=== PATIENT | female | born 1970 | race Caucasian/White ===

== ENCOUNTER 2019-05-19 14:54 | Inpatient (IN) | payer SELFPAY ==
[~2019-05-19] VITALS: Ht 165.1 cm; Wt 86.9 kg
[2019-05-19 15:40] LABS: BILIRUBIN,URINE SMALL (NEG); CLARITY,URINE CLEAR; COLOR,URINE AMBER; NITRITE,URINE NEGATIVE (NEG); PH,URINE 5.5; PROTEIN,URINE NEGATIVE (NEG-TRACE)
[2019-05-19 15:55] LABS: BACTERIA,URINE FEW /HPF (0-FEW); SQUAMOUS EPITHELIAL CELL,UR MOD /LPF; WBC,URINE OCC /HPF (0-4)
[2019-05-19] MEDS ORDERED: ONDANSETRON PF 4 MG/2 ML VIAL. IV ONE (16:00)
[2019-05-19] MEDS ORDERED: IV NORMAL SALINE 1000ML BAG 1,000 ML IV ONE ×2 (16:00→18:45)
[2019-05-19] MEDS ORDERED: fentaNYL PF VIAL 100 MCG/2 ML VIAL IV ONE (16:00)
[2019-05-19 16:23] LABS: BASO % 0 % (0-3); EOS % 0 % (0-3); HEMATOCRIT 40.4 % (36.0-47.0); HEMOGLOBIN 13.7 g/dL (12.0-15.5); LYMPH # 0.6 x10^3/uL (1.0-4.8); LYMPH % 11 % (24-48); MEAN CORPUSCULAR HEMOGLOBIN 27 pg (25-35); MEAN CORPUSCULAR HGB CONC 34 g/dL (31-37); MEAN CORPUSCULAR VOLUME 81 fL (79-100); MONO # 0.3 x10^3/uL (0.0-1.1); MONO % 5 % (0-9); NEUT # 4.9 x10^3/uL (1.8-7.7); NEUT % 83 % (31-73); PLATELET COUNT 139 x10^3/uL (140-400); RED BLOOD COUNT 5.01 x10^6/uL (3.50-5.40); RED CELL DISTRIBUTION WIDTH 16.1 % (11.5-14.5); WHITE BLOOD COUNT 5.9 x10^3/uL (4.0-11.0)
[2019-05-19 16:32] LABS: CALCIUM 8.6 mg/dL (8.5-10.1); CREATININE 0.8 mg/dL (0.6-1.0); GFR 76.9; POTASSIUM 4.1 mmol/L (3.5-5.1)
[2019-05-19 16:45] LABS: ALBUMIN 3.5 g/dL (3.4-5.0); ALBUMIN/GLOBULIN RATIO 0.9 (1.0-1.7); MAGNESIUM 1.9 mg/dL (1.8-2.4); TOTAL BILIRUBIN 0.5 mg/dL (0.2-1.0); TOTAL PROTEIN 7.4 g/dL (6.4-8.2)
--- NOTE | 2019-05-19 16:46 | RAD ---
Chest radiograph 05/19/2019 3:49 PM INDICATION: Pain between the shoulders, epigastric pain COMPARISON: None available TECHNIQUE: Frontal and lateral views of the chest are provided. FINDINGS: The cardiomediastinal silhouette is within normal limits. There are no pleural effusions. There is no pulmonary vascular congestion. There is no pneumothorax. Patchy nodular 8mm opacities identified in the right upper lobe. Calcified right hilar lymph nodes are identified. No significant osseous abnormality is identified. IMPRESSION: 8 mm nodular opacity identified in the right upper lobe. Further evaluation with chest CT may be of benefit. Electronically signed by: Karla Holguin MD (05/19/2019 4:43 PM) [facility]
[2019-05-19 17:15] LABS: AMPHETAMINE/METHAMPHETAMINE NEG (NEG); BARBITURATES NEG (NEG); BENZODIAZEPINES NEG (NEG); CANNABINOIDS NEG (NEG); COCAINE NEG (NEG); METHADONE NEG (NEG); OPIATES NEG (NEG); PHENCYCLIDINE NEG (NEG)
--- NOTE | 2019-05-19 17:44 | PHYS DOC ---
Past Medical History Past Medical History: Other Additional Past Medical Histor: PERNICIOUS ANEMIA, CELIAC Past Surgical History: Other Additional Past Surgical Histo: "THYROID ABLATION" Alcohol Use: Occasionally Drug Use: None Adult General Chief Complaint Chief Complaint: FLANK PAIN HPI HPI 48-year-old female presents to ER for complaints of diffuse abdominal pain with increased pain in the lower mid abdomen/pubic area. Patient states symptoms started after she was started on Zoloft last week. She states she had taken the medication for a couple of days when she had onset of diffuse abdominal pain and intermittent nausea and vomiting. She reports she took the medicine for 4 days and then took herself off of it. Patient states she has not felt good since. Patient states she has had some mid epigastric pain and pain between her shoulders intermittently for the past couple of days. She reports she has had decreased appetite. Patient states she was diaphoretic today denies fever. Patient denies any urinary or vaginal symptoms. LMP was 05/16/19. Patient denies any recent sexual intercourse. She reports history of celiac disease. Denies smoking, alcohol, or illicit drug use. Review of Systems Review of Systems Constitutional: Denies fever or chills. Reports generalized fatigue- diaphoretic today w/increased sxs Eyes: Denies change in visual acuity, redness, or eye pain [] HENT: Denies nasal congestion or sore throat [] Respiratory: Denies cough or shortness of breath [] Cardiovascular: Denies CP/palpitations GI: Denies bloody stools or diarrhea. Reports diffuse abd pain in mid epig/mid umbilical/lower abd with increased pain mid low abd/suprapubic pain. Reports N/V : Denies dysuria or hematuria. Denies vaginal sxs Musculoskeletal: Denies joint pain. Reports pain b/t shoulder blades intermittently Integument: Denies rash or skin lesions [] Neurologic: Denies headache, focal weakness or sensory changes [] Endocrine: Denies polyuria or polydipsia [] All other systems were reviewed and found to be within normal limits, except as documented in this note. Current Medications Current Medications Current Medications Medications (Trade) Dose Ordered Sig/Bill Start Time Stop Time Status Last Admin Dose Admin Fentanyl Citrate (Fentanyl 2ml Vial) 25 mcg 1X ONCE 05/19/19 16:00 05/19/19 16:01 DC 05/19/19 16:19 25 MCG Ondansetron HCl (Zofran) 4 mg 1X ONCE 05/19/19 16:00 05/19/19 16:01 DC 05/19/19 16:18 4 MG Sodium Chloride 1,000 ml @ 1,000 mls/hr 1X ONCE 05/19/19 16:00 05/19/19 16:59 DC 05/19/19 16:20 1,000 MLS/HR Allergies Allergies Allergies Coded Allergies Type Severity Reaction Last Updated Verified No Known Drug Allergies 05/19/19 No Physical Exam Physical Exam Constitutional: Well developed, well nourished, mild distress clutching lower abd, non-toxic appearance. Fatigued appearance HENT: Normocephalic, atraumatic, mucous membranes pink/dry, no oral exudates, nose normal. [] Eyes: Pupils equal, conjunctiva normal, no discharge. [] Neck: Normal range of motion, no tenderness, supple, no stridor. [] Cardiovascular: Bradycardic heart rate regular rhythm, no murmur [] Lungs & Thorax: Bilateral breath sounds clear to auscultation- resp. equal/nonlabored Abdomen: Bowel sounds normal, soft- no rigidity/distention, diffuse tenderness on palp. no focal area but does appear more tender mid low/suprapubic area, no masses, no pulsatile masses. [] Skin: Warm, dry, no erythema, no rash. [] Back: No tenderness, no CVA tenderness. [] Extremities: No tenderness, no cyanosis, no clubbing, ROM intact, no edema. [] Neurologic: Alert and oriented X 3, normal motor function, normal sensory function, no focal deficits noted. [] Psychologic: Affect normal, judgement normal, mood normal. [] Current Patient Data Vital Signs Vital Signs Date Time Temp Pulse Resp B/P (MAP) Pulse Ox O2 Delivery O2 Flow Rate FiO2 05/19/19 16:19 16 05/19/19 15:39 98.3 57 159/79 (105) 99 Room Air 98.3 Lab Values Laboratory Tests Test 05/19/19 15:00 05/19/19 16:10 Urine Collection Type Unknown Urine Color Roxy Urine Clarity Clear Urine pH 5.5 Urine Specific [place] 1.020 Urine Protein Negative mg/dL (NEG-TRACE) Urine Glucose (UA) Negative mg/dL (NEG) Urine Ketones (Stick) Trace mg/dL (NEG) Urine Blood Small (NEG) Urine Nitrite Negative (NEG) Urine Bilirubin Small (NEG) Urine Urobilinogen Dipstick 1.0 mg/dL (0.2 mg/dL) Urine Leukocyte Esterase Negative (NEG) Urine RBC 3-5 /HPF (0-2) Urine WBC Occ /HPF (0-4) Urine Squamous Epithelial Cells Mod /LPF Urine Bacteria Few /HPF (0-FEW) Urine Mucus Mod /LPF Urine Test Negative (NEG) Urine Opiates Screen Neg (NEG) Urine Methadone Screen Neg (NEG) Urine Barbiturates Neg (NEG) Urine Phencyclidine Screen Neg (NEG) Urine Amphetamine/Methamphetamine Neg (NEG) Urine Benzodiazepines Screen Neg (NEG) Urine Cocaine Screen Neg (NEG) Urine Cannabinoids Screen Neg (NEG) Urine Ethyl Alcohol Neg (NEG) White Blood Count 5.9 x10^3/uL (4.0-11.0) Red Blood Count 5.01 x10^6/uL (3.50-5.40) Hemoglobin 13.7 g/dL (12.0-15.5) Hematocrit 40.4 % (36.0-47.0) Mean Corpuscular Volume 81 fL (79-100) Mean Corpuscular Hemoglobin 27 pg (25-35) Mean Corpuscular Hemoglobin Concent 34 g/dL (31-37) Red Cell Distribution Width 16.1 % (11.5-14.5) H Platelet Count 139 x10^3/uL (140-400) L Neutrophils (%) (Auto) 83 % (31-73) H Lymphocytes (%) (Auto) 11 % (24-48) L Monocytes (%) (Auto) 5 % (0-9) Eosinophils (%) (Auto) 0 % (0-3) Basophils (%) (Auto) 0 % (0-3) Neutrophils # (Auto) 4.9 x10^3/uL (1.8-7.7) Lymphocytes # (Auto) 0.6 x10^3/uL (1.0-4.8) L Monocytes # (Auto) 0.3 x10^3/uL (0.0-1.1) Eosinophils # (Auto) 0.0 x10^3/uL (0.0-0.7) Basophils # (Auto) 0.0 x10^3/uL (0.0-0.2) Sodium Level 143 mmol/L (136-145) Potassium Level 4.1 mmol/L (3.5-5.1) Chloride Level 107 mmol/L (98-107) Carbon Dioxide Level 27 mmol/L (21-32) Anion Gap 9 (6-14) Blood Urea Nitrogen 11 mg/dL (7-20) Creatinine 0.8 mg/dL (0.6-1.0) Estimated GFR (Cockcroft-Gault) 76.9 BUN/Creatinine Ratio 14 (6-20) Glucose Level 114 mg/dL (70-99) H Calcium Level 8.6 mg/dL (8.5-10.1) Magnesium Level 1.9 mg/dL (1.8-2.4) Total Bilirubin 0.5 mg/dL (0.2-1.0) Aspartate Amino Transferase (AST) 199 U/L (15-37) H Alanine Aminotransferase (ALT) 428 U/L (14-59) H Alkaline Phosphatase 446 U/L (46-116) H Troponin I Quantitative 0.021 ng/mL (0.000-0.055) Total Protein 7.4 g/dL (6.4-8.2) Albumin 3.5 g/dL (3.4-5.0) Albumin/Globulin Ratio 0.9 (1.0-1.7) L Lipase 88941 U/L (73-393) H Ethyl Alcohol Level < 10 mg/dL (0-10) Laboratory Tests 05/19/19 16:10 Laboratory Tests 05/19/19 16:10 EKG EKG EKG obtained 05/19/19 at [address] Henry Sinus bradycardia Rate 49 No STEMI Radiology/Procedures Radiology/Procedures PROCEDURE: CHEST PA & LATERAL Chest radiograph 05/19/2019 3:49 PM INDICATION: Pain between the shoulders, epigastric pain COMPARISON: None available TECHNIQUE: Frontal and lateral views of the chest are provided. FINDINGS: The cardiomediastinal silhouette is within normal limits. There are no pleural effusions. There is no pulmonary vascular congestion. There is no pneumothorax. Patchy nodular 8mm opacities identified in the right upper lobe. Calcified right hilar lymph nodes are identified. No significant osseous abnormality is identified. IMPRESSION: 8 mm nodular opacity identified in the right upper lobe. Further evaluation with chest CT may be of benefit. Electronically signed by: Merline Perrin MD (05/19/2019 4:43 PM) [facility] DICTATED and SIGNED BY: MERLINE PERRIN MD DATE: 05/19/19 1348 Course & Med Decision Making Course & Med Decision Making Pertinent Labs and Imaging studies reviewed. (See chart for details) Pt was given IV flds/nausea and pain med. and reports improved sxs and has had no vomiting episodes while in the ER. EKG was obtained with no acute ST elevation/STEMI and troponin was neg. LFTs were elevated at AST/ALT 199/428 [place] [address] with pt denying hx of pancreatitis or alcohol use. UDS/alcohol results neg. UA with trace ketones neg. leuks. UCG neg. Discussed test results with pt and her mother along with admission plans for further care/monitoring. Pt is agreeable with admit plan. Will keep pt NPO and provide additional IV flds. 1740: Spoke with Dr. Malone patient's primary care physician and discuss her case and admission plan. With pt's elevated LFTs and acute pancreatitis CT abd/pelvis ordered for further eval. This is pending at time of admit. Dragon Disclaimer Dragon Disclaimer This electronic medical record was generated, in whole or in part, using a voice recognition dictation system. Departure Departure Impression: Primary Impression: Acute pancreatitis Additional Impression: Elevated LFTs Disposition: ADMITTED INPATIENT Admitting Physician: Naila Malone Condition: STABLE Referrals: Rachana MALONE MD (PCP) Scripts Oxycodone/Apap 5-325 (PERCOCET 5-325 MG TABLET ) 1 Each Tablet 1 TAB PO PRN Q6HRS PRN for PAIN for 5 Days, TAB 0 Refills Prov: Rachana MALONE MD 05/24/19 Levothyroxine Sodium (LEVOTHYROXINE SODIUM) 175 Mcg Tablet 1 TAB PO DAILY for thyroid, #30 TAB 5 Refills Prov: Rachana MALONE MD 05/24/19 Problem Qualifiers DAYANARA RAMEY APRN May 19, 2019 17:44
[2019-05-19] MEDS ORDERED: IOHEXOL 300 MG/ML 100ML VIAL. IV ONE ×2 (17:45→18:00)
[2019-05-19] MEDS ORDERED: CONTRAST GIVEN. MC PRN (18:15)
--- NOTE | 2019-05-19 18:44 | NUR ---
Received report from EBER Evans. Pt has not arrived to unit, gave report to wiliam VELÁZQUEZ.
[2019-05-19] MEDS ORDERED: ONDANSETRON PF 4 MG/2 ML VIAL. IV PRN (18:45)
[2019-05-19 18:50] LABS: U PREG PATIENT NEGATIVE (NEG)
--- NOTE | 2019-05-19 19:10 | NUR ---
The patient, RASHAD OVALLES, 48 y/o, F admitted by Rachana MCCLOUD MD, was given written information regarding hospital policies, unit procedures and contact persons. Patient arrived to room via wheelchair, assisted by ED staff member. Valuables were checked and noted. patient is currently laying in bed with eyes closed while answering questions, patient denies pain at this time. Family is at bedside. Patient denies any needs at this time. This RN will continue to monitor this patient.
[2019-05-19 19:31] VITALS: BP 123/75
--- NOTE | 2019-05-19 19:37 | RAD ---
EXAM: CT ABDOMEN/PELVIS WITH CONTRAST. HISTORY: Pancreatitis. Elevated liver enzymes. TECHNIQUE: Computed tomography of the abdomen and pelvis was performed after the intravenous administration of 75 mL Omnipaque 300. COMPARISON: None. FINDINGS: Lung windows through the visualized portions of the bases reveal no abnormality. Bone windows reveal no suspicious lesions. The gallbladder wall is thickened. Radiolucent gallstones are noted. There is no pericholecystic collection. The common duct is not dilated. Mild peripancreatic stranding is consistent with the given diagnosis of pancreatitis. No nonenhancing pancreatic parenchyma or underlying parenchymal lesions are seen. The pancreatic duct is not dilated. There is no drainable collection. There are calcified granulomas in the spleen. The spleen is mildly enlarged at 14.2 cm. The liver, adrenal glands and kidneys are unremarkable. There are no pathologically enlarged lymph nodes. There is no evidence of appendicitis. There is no small bowel obstruction. A subserosal uterine fibroid on the right measures 4.5 cm. IMPRESSION: 1. Cholelithiasis with gallbladder wall thickening. Correlate for acute cholecystitis. 2. Mild peripancreatic stranding is consistent with the given diagnosis of pancreatitis. No complications are identified. 3. Mild splenomegaly. 4. 4.5 cm uterine fibroid. *One or more of the following individualized dose reduction techniques were utilized for this examination: 1. Automated exposure control. 2. Adjustment of the mA and/or kV according to patient size. 3. Use of iterative reconstruction technique. Electronically signed by: Dia Vega MD (05/19/2019 7:34 PM) [facility]
[2019-05-19] MEDS: fentaNYL PF VIAL 100 MCG/2 ML VIAL IV PRN ×2 (20:25→22:55)
[2019-05-19 23:14] VITALS: BP 115/57
[2019-05-20 03:00] VITALS: BP 113/61
--- NOTE | 2019-05-20 06:55 | EKG ---
[facility] [address] [place] [address] Test Date: 2019-05-19 Test Time: 15:57:40 Pat Name: RASHAD OVALLES Department: Room: Gender: F Custom Designer: : 1970 Requested By: DAYANARA RAMEY Order Number: [id number] Reading MD: Measurements Intervals [place] Rate: 48 P: 39 CA: 150 QRS: 43 QRSD: 80 T: 44 QT: 434 QTc: 390 Interpretive Statements SINUS BRADYCARDIA OTHERWISE NORMAL ECG No previous ECG available for comparison
[2019-05-20 07:06] LABS: BASO % 0 % (0-3); EOS # 0.1 x10^3/uL (0.0-0.7); EOS % 2 % (0-3); HEMATOCRIT 36.4 % (36.0-47.0); HEMOGLOBIN 12.1 g/dL (12.0-15.5); LYMPH # 1.4 x10^3/uL (1.0-4.8); LYMPH % 30 % (24-48); MEAN CORPUSCULAR HEMOGLOBIN 27 pg (25-35); MEAN CORPUSCULAR HGB CONC 33 g/dL (31-37); MEAN CORPUSCULAR VOLUME 80 fL (79-100); MONO # 0.4 x10^3/uL (0.0-1.1); MONO % 8 % (0-9); NEUT # 2.9 x10^3/uL (1.8-7.7); NEUT % 61 % (31-73); PLATELET COUNT 134 x10^3/uL (140-400); RED BLOOD COUNT 4.53 x10^6/uL (3.50-5.40); RED CELL DISTRIBUTION WIDTH 16.2 % (11.5-14.5); WHITE BLOOD COUNT 4.8 x10^3/uL (4.0-11.0)
[2019-05-20 07:28] VITALS: BP 94/47
[2019-05-20 07:35] LABS: ALBUMIN 2.8 g/dL (3.4-5.0); ALBUMIN/GLOBULIN RATIO 0.8 (1.0-1.7); CALCIUM 8.1 mg/dL (8.5-10.1); CREATININE 0.6 mg/dL (0.6-1.0); GFR 107.2; POTASSIUM 3.8 mmol/L (3.5-5.1); TOTAL BILIRUBIN 0.4 mg/dL (0.2-1.0); TOTAL PROTEIN 6.1 g/dL (6.4-8.2)
--- NOTE | 2019-05-20 08:33 | PDOC1 ---
History and Physical Date of Admission Date of Admission 05/20/19 Identification/Chief Complaint Chief Complaint nausea Source Source: Chart review, Patient History of Present Illness History of Present Illness She presented to ER with nausea refractory to Zofran, she attributed it to being started recently on sertraline by Psych but found to have gallstone pancreatitis and now NPO, on IVF and IV pain meds and lab showing improvement, no evidence of infection though. 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) Rheumatologic: No pertinent hx Infectious disease: No pertinent hx ENT: No pertinent hx Renal/: No pertinent hx Endocrine: Hypothyroidism Dermatology: No pertinent hx Family History Family History: Cancer, Hypertension, Hypothyroidism, Obesity Social History Smoke: No ALCOHOL: none Drugs: None Current Problem List Problem List Problems Medical Problems: (1) Acute pancreatitis Status: Acute (2) Elevated LFTs Status: Acute Current Medications Current Medications Current Medications Medications (Trade) Dose Ordered Sig/Bill Start Time Stop Time Status Last Admin Dose Admin Fentanyl Citrate (Fentanyl 2ml Vial) 50 mcg PRN Q2HR PRN 05/19/19 18:45 05/20/19 18:44 05/19/19 22:55 50 MCG Info (CONTRAST GIVEN -- Rx MONITORING) 1 each PRN DAILY PRN 05/19/19 18:15 05/21/19 18:14 Iohexol (Omnipaque 300 Mg/ml) 75 ml 1X ONCE 05/19/19 18:00 05/19/19 18:05 DC Ondansetron HCl (Zofran) 4 mg PRN Q8HRS PRN 05/19/19 18:45 05/20/19 18:44 Sodium Chloride 1,000 ml @ 125 mls/hr 1X ONCE 05/19/19 18:45 05/20/19 02:45 DC 05/19/19 20:27 125 MLS/HR Allergies Allergies Allergies Coded Allergies Type Severity Reaction Last Updated Verified No Known Drug Allergies 05/19/19 No ROS Review of System CONSTITUTIONAL: No fever or chills EYES: No recent changes SKIN: No rash or itching CARDIOVASCULAR: No chest pain, syncope, palpitations, or edema RESPIRATORY: No SOB or cough GASTROINTESTINAL: + nausea, vomiting & abdominal pain NEUROLOGICAL: No headaches or weakness ENDOCRINE: No cold or heat intolerance GENITOURINARY: + urgency or frequency of urination MUSCULOSKELETAL: No back pain or joint pain LYMPHATICS: No enlarged lymph nodes PSYCHIATRIC: + anxiety or depression, recently started on sertraline Physical Exam Physical Exam GEN.: No apparent distress. Alert and oriented. HEENT: Head is normocephalic, atraumatic NECK: Supple. LUNGS: Clear to auscultation. HEART: RRR, S1, S2 present. Peripheral pulses intact ABDOMEN: Soft, RUQ tenderness but only mild. Positive bowel sounds. EXTREMITIES: Without any cyanosis. NEUROLOGIC: Normal speech, normal tone PSYCHIATRIC: Normal affect, normal mood. SKIN: No ulcerations Vitals Vitals Vital Signs Date Time Temp Pulse Resp B/P (MAP) Pulse Ox O2 Delivery O2 Flow Rate FiO2 05/20/19 07:28 98.2 50 16 94/47 (63) 96 Room Air 98.2 Labs Labs Laboratory Tests Test 05/19/19 15:00 05/19/19 16:10 05/20/19 06:20 05/20/19 06:25 Urine Collection Type Unknown Urine Color Roxy Urine Clarity Clear Urine pH 5.5 Urine Specific [place] 1.020 Urine Protein Negative mg/dL (NEG-TRACE) Urine Glucose (UA) Negative mg/dL (NEG) Urine Ketones (Stick) Trace mg/dL (NEG) Urine Blood Small (NEG) Urine Nitrite Negative (NEG) Urine Bilirubin Small (NEG) Urine Urobilinogen Dipstick 1.0 mg/dL (0.2 mg/dL) Urine Leukocyte Esterase Negative (NEG) Urine RBC 3-5 /HPF (0-2) Urine WBC Occ /HPF (0-4) Urine Squamous Epithelial Cells Mod /LPF Urine Bacteria Few /HPF (0-FEW) Urine Mucus Mod /LPF Urine Test Negative (NEG) Urine Opiates Screen Neg (NEG) Urine Methadone Screen Neg (NEG) Urine Barbiturates Neg (NEG) Urine Phencyclidine Screen Neg (NEG) Urine Amphetamine/Methamphetamine Neg (NEG) Urine Benzodiazepines Screen Neg (NEG) Urine Cocaine Screen Neg (NEG) Urine Cannabinoids Screen Neg (NEG) Urine Ethyl Alcohol Neg (NEG) White Blood Count 5.9 x10^3/uL (4.0-11.0) 4.8 x10^3/uL (4.0-11.0) Red Blood Count 5.01 x10^6/uL (3.50-5.40) 4.53 x10^6/uL (3.50-5.40) Hemoglobin 13.7 g/dL (12.0-15.5) 12.1 g/dL (12.0-15.5) Hematocrit 40.4 % (36.0-47.0) 36.4 % (36.0-47.0) Mean Corpuscular Volume 81 fL (79-100) 80 fL (79-100) Mean Corpuscular Hemoglobin 27 pg (25-35) 27 pg (25-35) Mean Corpuscular Hemoglobin Concent 34 g/dL (31-37) 33 g/dL (31-37) Red Cell Distribution Width 16.1 % (11.5-14.5) 16.2 % (11.5-14.5) Platelet Count 139 x10^3/uL (140-400) 134 x10^3/uL (140-400) Neutrophils (%) (Auto) 83 % (31-73) 61 % (31-73) Lymphocytes (%) (Auto) 11 % (24-48) 30 % (24-48) Monocytes (%) (Auto) 5 % (0-9) 8 % (0-9) Eosinophils (%) (Auto) 0 % (0-3) 2 % (0-3) Basophils (%) (Auto) 0 % (0-3) 0 % (0-3) Neutrophils # (Auto) 4.9 x10^3/uL (1.8-7.7) 2.9 x10^3/uL (1.8-7.7) Lymphocytes # (Auto) 0.6 x10^3/uL (1.0-4.8) 1.4 x10^3/uL (1.0-4.8) Monocytes # (Auto) 0.3 x10^3/uL (0.0-1.1) 0.4 x10^3/uL (0.0-1.1) Eosinophils # (Auto) 0.0 x10^3/uL (0.0-0.7) 0.1 x10^3/uL (0.0-0.7) Basophils # (Auto) 0.0 x10^3/uL (0.0-0.2) 0.0 x10^3/uL (0.0-0.2) Sodium Level 143 mmol/L (136-145) 145 mmol/L (136-145) Potassium Level 4.1 mmol/L (3.5-5.1) 3.8 mmol/L (3.5-5.1) Chloride Level 107 mmol/L (98-107) 110 mmol/L (98-107) Carbon Dioxide Level 27 mmol/L (21-32) 25 mmol/L (21-32) Anion Gap 9 (6-14) 10 (6-14) Blood Urea Nitrogen 11 mg/dL (7-20) 13 mg/dL (7-20) Creatinine 0.8 mg/dL (0.6-1.0) 0.6 mg/dL (0.6-1.0) Estimated GFR (Cockcroft-Gault) 76.9 107.2 BUN/Creatinine Ratio 14 (6-20) 22 (6-20) Glucose Level 114 mg/dL (70-99) 82 mg/dL (70-99) Calcium Level 8.6 mg/dL (8.5-10.1) 8.1 mg/dL (8.5-10.1) Magnesium Level 1.9 mg/dL (1.8-2.4) Total Bilirubin 0.5 mg/dL (0.2-1.0) 0.4 mg/dL (0.2-1.0) Aspartate Amino Transf (AST/SGOT) 199 U/L (15-37) 80 U/L (15-37) Alanine Aminotransferase (ALT/SGPT) 428 U/L (14-59) 276 U/L (14-59) Alkaline Phosphatase 446 U/L (46-116) 300 U/L (46-116) Troponin I Quantitative 0.021 ng/mL (0.000-0.055) Total Protein 7.4 g/dL (6.4-8.2) 6.1 g/dL (6.4-8.2) Albumin 3.5 g/dL (3.4-5.0) 2.8 g/dL (3.4-5.0) Albumin/Globulin Ratio 0.9 (1.0-1.7) 0.8 (1.0-1.7) Lipase 55516 U/L (73-393) 2531 U/L (73-393) Ethyl Alcohol Level < 10 mg/dL (0-10) Laboratory Tests Test 05/19/19 15:00 05/19/19 16:10 05/20/19 06:20 05/20/19 06:25 Urine Collection Type Unknown Urine Color Roxy Urine Clarity Clear Urine pH 5.5 Urine Specific [place] 1.020 Urine Protein Negative mg/dL (NEG-TRACE) Urine Glucose (UA) Negative mg/dL (NEG) Urine Ketones (Stick) Trace mg/dL (NEG) Urine Blood Small (NEG) Urine Nitrite Negative (NEG) Urine Bilirubin Small (NEG) Urine Urobilinogen Dipstick 1.0 mg/dL (0.2 mg/dL) Urine Leukocyte Esterase Negative (NEG) Urine RBC 3-5 /HPF (0-2) Urine WBC Occ /HPF (0-4) Urine Squamous Epithelial Cells Mod /LPF Urine Bacteria Few /HPF (0-FEW) Urine Mucus Mod /LPF Urine Test Negative (NEG) Urine Opiates Screen Neg (NEG) Urine Methadone Screen Neg (NEG) Urine Barbiturates Neg (NEG) Urine Phencyclidine Screen Neg (NEG) Urine Amphetamine/Methamphetamine Neg (NEG) Urine Benzodiazepines Screen Neg (NEG) Urine Cocaine Screen Neg (NEG) Urine Cannabinoids Screen Neg (NEG) Urine Ethyl Alcohol Neg (NEG) White Blood Count 5.9 x10^3/uL (4.0-11.0) 4.8 x10^3/uL (4.0-11.0) Red Blood Count 5.01 x10^6/uL (3.50-5.40) 4.53 x10^6/uL (3.50-5.40) Hemoglobin 13.7 g/dL (12.0-15.5) 12.1 g/dL (12.0-15.5) Hematocrit 40.4 % (36.0-47.0) 36.4 % (36.0-47.0) Mean Corpuscular Volume 81 fL (79-100) 80 fL (79-100) Mean Corpuscular Hemoglobin 27 pg (25-35) 27 pg (25-35) Mean Corpuscular Hemoglobin Concent 34 g/dL (31-37) 33 g/dL (31-37) Red Cell Distribution Width 16.1 % (11.5-14.5) 16.2 % (11.5-14.5) Platelet Count 139 x10^3/uL (140-400) 134 x10^3/uL (140-400) Neutrophils (%) (Auto) 83 % (31-73) 61 % (31-73) Lymphocytes (%) (Auto) 11 % (24-48) 30 % (24-48) Monocytes (%) (Auto) 5 % (0-9) 8 % (0-9) Eosinophils (%) (Auto) 0 % (0-3) 2 % (0-3) Basophils (%) (Auto) 0 % (0-3) 0 % (0-3) Neutrophils # (Auto) 4.9 x10^3/uL (1.8-7.7) 2.9 x10^3/uL (1.8-7.7) Lymphocytes # (Auto) 0.6 x10^3/uL (1.0-4.8) 1.4 x10^3/uL (1.0-4.8) Monocytes # (Auto) 0.3 x10^3/uL (0.0-1.1) 0.4 x10^3/uL (0.0-1.1) Eosinophils # (Auto) 0.0 x10^3/uL (0.0-0.7) 0.1 x10^3/uL (0.0-0.7) Basophils # (Auto) 0.0 x10^3/uL (0.0-0.2) 0.0 x10^3/uL (0.0-0.2) Sodium Level 143 mmol/L (136-145) 145 mmol/L (136-145) Potassium Level 4.1 mmol/L (3.5-5.1) 3.8 mmol/L (3.5-5.1) Chloride Level 107 mmol/L (98-107) 110 mmol/L (98-107) Carbon Dioxide Level 27 mmol/L (21-32) 25 mmol/L (21-32) Anion Gap 9 (6-14) 10 (6-14) Blood Urea Nitrogen 11 mg/dL (7-20) 13 mg/dL (7-20) Creatinine 0.8 mg/dL (0.6-1.0) 0.6 mg/dL (0.6-1.0) Estimated GFR (Cockcroft-Gault) 76.9 107.2 BUN/Creatinine Ratio 14 (6-20) 22 (6-20) Glucose Level 114 mg/dL (70-99) 82 mg/dL (70-99) Calcium Level 8.6 mg/dL (8.5-10.1) 8.1 mg/dL (8.5-10.1) Magnesium Level 1.9 mg/dL (1.8-2.4) Total Bilirubin 0.5 mg/dL (0.2-1.0) 0.4 mg/dL (0.2-1.0) Aspartate Amino Transf (AST/SGOT) 199 U/L (15-37) 80 U/L (15-37) Alanine Aminotransferase (ALT/SGPT) 428 U/L (14-59) 276 U/L (14-59) Alkaline Phosphatase 446 U/L (46-116) 300 U/L (46-116) Troponin I Quantitative 0.021 ng/mL (0.000-0.055) Total Protein 7.4 g/dL (6.4-8.2) 6.1 g/dL (6.4-8.2) Albumin 3.5 g/dL (3.4-5.0) 2.8 g/dL (3.4-5.0) Albumin/Globulin Ratio 0.9 (1.0-1.7) 0.8 (1.0-1.7) Lipase 08579 U/L (73-393) 2531 U/L (73-393) Ethyl Alcohol Level < 10 mg/dL (0-10) Images Images CT abd/pelvis: IMPRESSION: 1. Cholelithiasis with gallbladder wall thickening. Correlate for acute cholecystitis. 2. Mild peripancreatic stranding is consistent with the given diagnosis of pancreatitis. No complications are identified. 3. Mild splenomegaly. 4. 4.5 cm uterine fibroid. VTE Prophylaxis Ordered VTE Prophylaxis Devices: No VTE Pharmacological Prophylaxi: No Assessment/Plan Assessment/Plan gallstone pancreatitis - labs improved, NPO, IV hydration and nutrition, surgery and GI consults cholelithiasis, likely cholecystitis - US confirms sono + Fitzgerald's sign dysuria - cx urine, start Rocephin hypothyroidism - overtreated per lab, hold po dose depression - resume sertraline when starts po mild splenomegaly 4.5 cm fibroid hx of morbid obesity Rachana MCCLOUD MD May 20, 2019 08:33
[2019-05-20] MEDS: AMINO AC 3%/ELECTROLYTE/GLYCER 1,000 ML IV SCH ×2 (09:32→21:41)
[2019-05-20] MEDS: fentaNYL PF VIAL 100 MCG/2 ML VIAL IV PRN ×2 (09:39→15:32)
--- NOTE | 2019-05-20 10:21 | PDOC2 ---
GI CONSULT Reason For Consult: Pancreatitis HPI: HPI: 48 y/o female w/ upper abd discomfort radiating to back and into chest associated w/ n/v since last week. Thought related to started Zoloft, symptoms not improved after stopping. Denies reflux/heartburn, dysphagia, chronic n/v or abd pain, diarrhea, hematochezia, hematemesis, melena, or weight loss. Occasional constipation improved w/ fiber. Maksim was seen at [facility] in 2014 and transferred to where she had a colonoscopy and some other x-rays and was diagnosed w/ celiac disease and pernicious anemia. Follows a gluten free diet and takes B12 inj Q 3 weeks. Had an EGD years ago, does not recall indication or findings. No GB, liver, pancreas, or PUD history. No NSAIDs. Abd pain currently improved, says she was told her gallbladder would need to come out in a month. On PPN. C/o burning w/ urination. PMH: PMH: celiac disease, pernicious anemia, depression/anxiety, hypothyroidism, ?hypotension FH: Family History: Other (father - GB disease) Social History: Smoke: <1 pack per day ("Vapes") ALCOHOL: none Drugs: None ROS: GEN: Denies fevers, chills, sweats HEENT: Denies blurred vision, sore throat CV: Denies chest pain RESP: Denies shortness of air, cough GI: Per HPI : +dysuria ENDO: Denies weight changes NEURO: Denies confusion, dizziness MSK: Denies weakness, joint pain/swelling SKIN: Denies jaundice, pruritus Vitals: Vitals: Vital Signs Date Time Temp Pulse Resp B/P (MAP) Pulse Ox O2 Delivery O2 Flow Rate FiO2 05/20/19 08:00 Room Air 05/20/19 07:28 98.2 50 16 94/47 (58) 96 98.2 Labs: Labs: Laboratory Tests Test 05/19/19 15:00 05/19/19 16:10 05/20/19 06:20 05/20/19 06:25 Urine Collection Type Unknown Urine Color Roxy Urine Clarity Clear Urine pH 5.5 Urine Specific [place] 1.020 Urine Protein Negative mg/dL (NEG-TRACE) Urine Glucose (UA) Negative mg/dL (NEG) Urine Ketones (Stick) Trace mg/dL (NEG) Urine Blood Small (NEG) Urine Nitrite Negative (NEG) Urine Bilirubin Small (NEG) Urine Urobilinogen Dipstick 1.0 mg/dL (0.2 mg/dL) Urine Leukocyte Esterase Negative (NEG) Urine RBC 3-5 /HPF (0-2) Urine WBC Occ /HPF (0-4) Urine Squamous Epithelial Cells Mod /LPF Urine Bacteria Few /HPF (0-FEW) Urine Mucus Mod /LPF Urine Test Negative (NEG) Urine Opiates Screen Neg (NEG) Urine Methadone Screen Neg (NEG) Urine Barbiturates Neg (NEG) Urine Phencyclidine Screen Neg (NEG) Urine Amphetamine/Methamphetamine Neg (NEG) Urine Benzodiazepines Screen Neg (NEG) Urine Cocaine Screen Neg (NEG) Urine Cannabinoids Screen Neg (NEG) Urine Ethyl Alcohol Neg (NEG) White Blood Count 5.9 x10^3/uL (4.0-11.0) 4.8 x10^3/uL (4.0-11.0) Red Blood Count 5.01 x10^6/uL (3.50-5.40) 4.53 x10^6/uL (3.50-5.40) Hemoglobin 13.7 g/dL (12.0-15.5) 12.1 g/dL (12.0-15.5) Hematocrit 40.4 % (36.0-47.0) 36.4 % (36.0-47.0) Mean Corpuscular Volume 81 fL (79-100) 80 fL (79-100) Mean Corpuscular Hemoglobin 27 pg (25-35) 27 pg (25-35) Mean Corpuscular Hemoglobin Concent 34 g/dL (31-37) 33 g/dL (31-37) Red Cell Distribution Width 16.1 % (11.5-14.5) 16.2 % (11.5-14.5) Platelet Count 139 x10^3/uL (140-400) 134 x10^3/uL (140-400) Neutrophils (%) (Auto) 83 % (31-73) 61 % (31-73) Lymphocytes (%) (Auto) 11 % (24-48) 30 % (24-48) Monocytes (%) (Auto) 5 % (0-9) 8 % (0-9) Eosinophils (%) (Auto) 0 % (0-3) 2 % (0-3) Basophils (%) (Auto) 0 % (0-3) 0 % (0-3) Neutrophils # (Auto) 4.9 x10^3/uL (1.8-7.7) 2.9 x10^3/uL (1.8-7.7) Lymphocytes # (Auto) 0.6 x10^3/uL (1.0-4.8) 1.4 x10^3/uL (1.0-4.8) Monocytes # (Auto) 0.3 x10^3/uL (0.0-1.1) 0.4 x10^3/uL (0.0-1.1) Eosinophils # (Auto) 0.0 x10^3/uL (0.0-0.7) 0.1 x10^3/uL (0.0-0.7) Basophils # (Auto) 0.0 x10^3/uL (0.0-0.2) 0.0 x10^3/uL (0.0-0.2) Sodium Level 143 mmol/L (136-145) 145 mmol/L (136-145) Potassium Level 4.1 mmol/L (3.5-5.1) 3.8 mmol/L (3.5-5.1) Chloride Level 107 mmol/L (98-107) 110 mmol/L (98-107) Carbon Dioxide Level 27 mmol/L (21-32) 25 mmol/L (21-32) Anion Gap 9 (6-14) 10 (6-14) Blood Urea Nitrogen 11 mg/dL (7-20) 13 mg/dL (7-20) Creatinine 0.8 mg/dL (0.6-1.0) 0.6 mg/dL (0.6-1.0) Estimated GFR (Cockcroft-Gault) 76.9 107.2 BUN/Creatinine Ratio 14 (6-20) 22 (6-20) Glucose Level 114 mg/dL (70-99) 82 mg/dL (70-99) Calcium Level 8.6 mg/dL (8.5-10.1) 8.1 mg/dL (8.5-10.1) Magnesium Level 1.9 mg/dL (1.8-2.4) Total Bilirubin 0.5 mg/dL (0.2-1.0) 0.4 mg/dL (0.2-1.0) Aspartate Amino Transf (AST/SGOT) 199 U/L (15-37) 80 U/L (15-37) Alanine Aminotransferase (ALT/SGPT) 428 U/L (14-59) 276 U/L (14-59) Alkaline Phosphatase 446 U/L (46-116) 300 U/L (46-116) Troponin I Quantitative 0.021 ng/mL (0.000-0.055) Total Protein 7.4 g/dL (6.4-8.2) 6.1 g/dL (6.4-8.2) Albumin 3.5 g/dL (3.4-5.0) 2.8 g/dL (3.4-5.0) Albumin/Globulin Ratio 0.9 (1.0-1.7) 0.8 (1.0-1.7) Lipase 24112 U/L (73-393) 2531 U/L (73-393) Ethyl Alcohol Level < 10 mg/dL (0-10) Thyroid Stimulating Hormone (TSH) 0.109 uIU/mL (0.358-3.74) Allergies: Coded Allergies: No Known Drug Allergies (Unverified , 05/19/19) Medications: Current Medications Medications (Trade) Dose Ordered Sig/Bill Route PRN Reason Start Time Stop Time Status Last Admin Dose Admin Sodium Chloride 1,000 ml @ 1,000 mls/hr 1X ONCE IV 05/19/19 16:00 05/19/19 16:59 DC 05/19/19 16:20 Ondansetron HCl (Zofran) 4 mg 1X ONCE IV 05/19/19 16:00 05/19/19 16:01 DC 05/19/19 16:18 Fentanyl Citrate (Fentanyl 2ml Vial) 25 mcg 1X ONCE IV 05/19/19 16:00 05/19/19 16:01 DC 05/19/19 16:19 Iohexol (Omnipaque 300 Mg/ml) 75 ml 1X ONCE IV 05/19/19 17:45 05/19/19 18:05 DC 05/19/19 18:54 Fentanyl Citrate (Fentanyl 2ml Vial) 50 mcg PRN Q2HR PRN IV PAIN 05/19/19 18:45 05/20/19 18:44 05/20/19 09:39 Sodium Chloride 1,000 ml @ 125 mls/hr 1X ONCE IV 05/19/19 18:45 05/20/19 02:45 DC 05/19/19 20:27 Amino Acids/ Glycerin/ Electrolytes 1,000 ml @ 80 mls/hr [id number] IV 05/20/19 09:00 05/20/19 09:32 Imaging: Imaging: CXR IMPRESSION: 8 mm nodular opacity identified in the right upper lobe. Further evaluation with chest CT may be of benefit. CT A/P FINDINGS: Lung windows through the visualized portions of the bases reveal no abnormality. Bone windows reveal no suspicious lesions. The gallbladder wall is thickened. Radiolucent gallstones are noted. There is no pericholecystic collection. The common duct is not dilated. Mild peripancreatic stranding is consistent with the given diagnosis of pancreatitis. No nonenhancing pancreatic parenchyma or underlying parenchymal lesions are seen. The pancreatic duct is not dilated. There is no drainable collection. There are calcified granulomas in the spleen. The spleen is mildly enlarged at 14.2 cm. The liver, adrenal glands and kidneys are unremarkable. There are no pathologically enlarged lymph nodes. There is no evidence of appendicitis. There is no small bowel obstruction. A subserosal uterine fibroid on the right measures 4.5 cm. IMPRESSION: 1. Cholelithiasis with gallbladder wall thickening. Correlate for acute cholecystitis. 2. Mild peripancreatic stranding is consistent with the given diagnosis of pancreatitis. No complications are identified. 3. Mild splenomegaly. 4. 4.5 cm uterine fibroid. PE: GEN: NAD HEENT: Atraumatic, PERRL LUNGS: CTAB HEART: RRR ABD: quiet, S/ND, currently non-tender EXTREMITY: No edema SKIN: No rashes, no jaundice NEURO/PSYCH: A & O �3, flat A/P: A/P: Abd pain, n/v ---> gallstone pancreatitis Abnormal LFTs - normal bili but elevated Alk Phos, AST, and ALT (improved); normal liver and CBD on CT - note thrombocytopenia and mild splenomegaly H/o celiac disease and pernicious anemia - controlled w/ gluten-free diet and B12 injections (last received yesterday) CRC screen - reportedly normal @ [facility] in 2014 H/o hypothyroidism - TSH 0.109 -- Surgery to see. Agree w/ NPO. Check US re: LFTs. Defer dysuria and thyroid to primary. SAMPSON MERAZ May 20, 2019 10:21
[2019-05-20 11:00] VITALS: BP 82/42
--- NOTE | 2019-05-20 12:15 | RAD ---
Examination: ABDOMEN LTD History: Elevated LFTs, cholelithiasis Comparison/Correlation: 05/19/2019 CT abdomen and pelvis with contrast Findings: Hepatic echotexture normal. Portal venous and hepatic venous flow are unremarkable. Numerous small calculi present within the gallbladder. Sonographic Fitzgerald sign is reported. Gallbladder wall thickness of 0.6 cm present. No intrahepatic biliary dilatation. No pericholecystic fluid. Liver length is 17 cm. Common bile duct measures 0.54 cm. Right kidney measures 11.3 cm x 4.6 cm x 4.3 cm. Normal right renal contour and echotexture is identified. Normal right renal cortical thickness. Proximal pancreas is partially visualized. The pancreas is otherwise obscured by bowel gas. No upper abdominal ascites. Inferior vena cava is unremarkable. Abdominal aortic diameter is unremarkable. Impression: Cholelithiasis. Gallbladder wall thickening and sonographic Fitzgerald sign raise question of cholecystitis. No biliary dilatation. Electronically signed by: Keny Schrader MD (05/20/2019 12:12 PM) [facility]
--- NOTE | 2019-05-20 14:18 | PDOC2 ---
CONSULT Date of Consult Date of Consult DATE: 05/20/19 TIME: 14:15 History of Present Illness Reason for Visit: 48 year old female who reported to the hospital because of abdominal pain. The pain has been located in the mid abdomen with radiation to the back. She reports associated nausea and vomiting. She denies prior episodes of this. Her evaluation has been consistent with gallstone pancreatitis. Past Medical History Cardiovascular: Other (Phen-fen settlement) Pulmonary: No pertinent hx GI: Other (celiac) Heme/Onc: B12 deficiency Hepatobiliary: Cholelithiasis Psych: Anxiety, Depression, Other (body image disorder related to past obesity) Rheumatologic: No pertinent hx Infectious disease: No pertinent hx ENT: No pertinent hx Renal/: No pertinent hx Endocrine: Hypothyroidism Dermatology: No pertinent hx Past Surgical History Past Surgical History denies Family History Family History: Cancer, Hypertension, Hypothyroidism, Obesity Social History No ALCOHOL: none Drugs: None Current Problem List Problem List Problems Medical Problems: (1) Acute pancreatitis Status: Acute (2) Elevated LFTs Status: Acute Current Medications Current Medications Current Medications Sodium Chloride 1,000 ml @ 1,000 mls/hr 1X ONCE IV Last administered on 05/19/19at 16:20; Start 05/19/19 at 16:00; Stop 05/19/19 at 16:59; Status DC Ondansetron HCl (Zofran) 4 mg 1X ONCE IV Last administered on 05/19/19at 16:18; Start 05/19/19 at 16:00; Stop 05/19/19 at 16:01; Status DC Fentanyl Citrate (Fentanyl 2ml Vial) 25 mcg 1X ONCE IV Last administered on 05/19/19at 16:19; Start 05/19/19 at 16:00; Stop 05/19/19 at 16:01; Status DC Iohexol (Omnipaque 300 Mg/ml) 75 ml 1X ONCE IV Last administered on 05/19/19at 18:54; Start 05/19/19 at 17:45; Stop 05/19/19 at 18:05; Status DC Iohexol (Omnipaque 300 Mg/ml) 75 ml 1X ONCE IV ; Start 05/19/19 at 18:00; Stop 05/19/19 at 18:05; Status DC Info (CONTRAST GIVEN -- Rx MONITORING) 1 each PRN DAILY PRN MC SEE COMMENTS; Start 05/19/19 at 18:15; Stop 05/21/19 at 18:14 Ondansetron HCl (Zofran) 4 mg PRN Q8HRS PRN IV NAUSEA/VOMITING; Start 05/19/19 at 18:45; Stop 05/20/19 at 18:44 Fentanyl Citrate (Fentanyl 2ml Vial) 50 mcg PRN Q2HR PRN IV PAIN Last administered on 05/20/19at 09:39; Start 05/19/19 at 18:45; Stop 05/20/19 at 18:44 Sodium Chloride 1,000 ml @ 125 mls/hr 1X ONCE IV Last administered on 05/19/19at 20:27; Start 05/19/19 at 18:45; Stop 05/20/19 at 02:45; Status DC Amino Acids/ Glycerin/ Electrolytes 1,000 ml @ 80 mls/hr [id number] IV Last administered on 05/20/19at 09:32; Start 05/20/19 at 09:00 Ceftriaxone Sodium (Rocephin) 1 gm Q24H IVP ; Start 05/20/19 at 15:00 Allergies Allergies: Coded Allergies: No Known Drug Allergies (Unverified , 05/19/19) ROS General: No: Chills, Night Sweats, Fatigue, Malaise, Appetite, Other PSYCHOLOGICAL ROS: No: Anxiety, Behavioral Disorder, Concentration difficultie, Decreased libido, Depression, Disorientation, Hallucinations, Hostility, Irritablity, Memory difficulties, Mood Swings, Obsessive thoughts, Physical abuse, Sexual abuse, Sleep disturbances, Suicidal ideation, Other Eyes: No Blurry vision, No Decreased vision, No Double vision, No Dry eyes, No Excessive tearing, No Eye Pain, No Itchy Eyes, No Loss of vision, No Photophobia, No Scotomata, No Uses contacts, No Uses glasses, No Other HEENT: No: Heacaches, Visual Changes, Hearing change, Nasal congestion, Nasal discharge, Oral lesions, Sinus pain, Sore Throat, Epistaxis, Sneezing, Snoring, Tinnitus, Vertigo, Vocal changes, Other ALLERGY AND IMMUNOLOGY: No: Hives, Insect Bite Sensitivity, Itchy/Watery Eyes, Nasal Congestion, Post Nasal Drip, Seasonal Allergies, Other Hematological and Lymphatic: No: Bleeding Problems, Blood Clots, Blood Transfusions, Brusing, Night Sweats, Pallor, Swollen Lymph Nodes, Other ENDOCRINE: No: Breast Changes, Galactorrhea, Hair Pattern Changes, Hot Flashes, Malaise/lethargy, Mood Swings, Palpitations, Polydipsia/polyuria, Skin Changes, Temperature Intolerance, Unexpected Weight Changes, Other Respiratory: No: Cough, Hemoptysis, Orthopnea, Pleuritic Pain, Shortness of breath, SOB with excertion, Sputum Changes, Stridor, Tachypnea, Wheezing, Other Cardiovascular: No Chest Pain, No Palpitations, No Orthopnea, No Paroxysmal Noc. Dyspnea, No Edema, No Lt Headedness, No Other Gastrointestinal: Yes Nausea, Yes Vomiting, Yes Abdominal Pain Genitourinary: No Dysuria, No Frequency, No Incontinence, No Hematuria, No Retention, No Discharge, No Urgency, No Pain, No Flank Pain, No Other, No , No , No , No , No , No , No Musculoskeletal: No Gait Disturbance, No Joint Pain, No Joint Stiffness, No Joint Swelling, No Muscle Pain, No Muscular Weakness, No Pain In:, No Swelling In:, No Other Neurological: No Behavorial Changes, No Bowel/Bladder ControlChng, No Confusion, No Dizziness, No Gait Disturbance, No Headaches, No Impaired Coord /balance, No Memory Loss, No Numbness/Tingling, No Seizures, No Speech Problems, No Tremors, No Visual Changes, No Weakness, No Other Skin: No Dry Skin, No Eczema, No Hair Changes, No Lumps, No Mole Changes, No Mottling, No Nail Changes, No Pruritus, No Rash, No Skin Lesion Changes, No Other, No Acne Physical Exam General: Alert, Oriented X3, Cooperative HEENT: Atraumatic Lungs: Clear to auscultation Abdomen: Soft, No tenderness Extremities: No clubbing, No cyanosis Skin: No rashes Neuro: Normal speech Psych/Mental Status: Mental status NL MUSCULOSKELETAL: No joint tenderness, No deformity Vitals VITALS Vital Signs Date Time Temp Pulse Resp B/P (MAP) Pulse Ox O2 Delivery O2 Flow Rate FiO2 05/20/19 11:00 96.8 49 14 82/42 (55) 100 Room Air 96.8 Labs Labs Laboratory Tests Test 05/19/19 15:00 05/19/19 16:10 05/20/19 06:20 05/20/19 06:25 Urine Collection Type Unknown Urine Color Roxy Urine Clarity Clear Urine pH 5.5 Urine Specific [place] 1.020 Urine Protein Negative mg/dL (NEG-TRACE) Urine Glucose (UA) Negative mg/dL (NEG) Urine Ketones (Stick) Trace mg/dL (NEG) Urine Blood Small (NEG) Urine Nitrite Negative (NEG) Urine Bilirubin Small (NEG) Urine Urobilinogen Dipstick 1.0 mg/dL (0.2 mg/dL) Urine Leukocyte Esterase Negative (NEG) Urine RBC 3-5 /HPF (0-2) Urine WBC Occ /HPF (0-4) Urine Squamous Epithelial Cells Mod /LPF Urine Bacteria Few /HPF (0-FEW) Urine Mucus Mod /LPF Urine Test Negative (NEG) Urine Opiates Screen Neg (NEG) Urine Methadone Screen Neg (NEG) Urine Barbiturates Neg (NEG) Urine Phencyclidine Screen Neg (NEG) Urine Amphetamine/Methamphetamine Neg (NEG) Urine Benzodiazepines Screen Neg (NEG) Urine Cocaine Screen Neg (NEG) Urine Cannabinoids Screen Neg (NEG) Urine Ethyl Alcohol Neg (NEG) White Blood Count 5.9 x10^3/uL (4.0-11.0) 4.8 x10^3/uL (4.0-11.0) Red Blood Count 5.01 x10^6/uL (3.50-5.40) 4.53 x10^6/uL (3.50-5.40) Hemoglobin 13.7 g/dL (12.0-15.5) 12.1 g/dL (12.0-15.5) Hematocrit 40.4 % (36.0-47.0) 36.4 % (36.0-47.0) Mean Corpuscular Volume 81 fL (79-100) 80 fL (79-100) Mean Corpuscular Hemoglobin 27 pg (25-35) 27 pg (25-35) Mean Corpuscular Hemoglobin Concent 34 g/dL (31-37) 33 g/dL (31-37) Red Cell Distribution Width 16.1 % (11.5-14.5) 16.2 % (11.5-14.5) Platelet Count 139 x10^3/uL (140-400) 134 x10^3/uL (140-400) Neutrophils (%) (Auto) 83 % (31-73) 61 % (31-73) Lymphocytes (%) (Auto) 11 % (24-48) 30 % (24-48) Monocytes (%) (Auto) 5 % (0-9) 8 % (0-9) Eosinophils (%) (Auto) 0 % (0-3) 2 % (0-3) Basophils (%) (Auto) 0 % (0-3) 0 % (0-3) Neutrophils # (Auto) 4.9 x10^3/uL (1.8-7.7) 2.9 x10^3/uL (1.8-7.7) Lymphocytes # (Auto) 0.6 x10^3/uL (1.0-4.8) 1.4 x10^3/uL (1.0-4.8) Monocytes # (Auto) 0.3 x10^3/uL (0.0-1.1) 0.4 x10^3/uL (0.0-1.1) Eosinophils # (Auto) 0.0 x10^3/uL (0.0-0.7) 0.1 x10^3/uL (0.0-0.7) Basophils # (Auto) 0.0 x10^3/uL (0.0-0.2) 0.0 x10^3/uL (0.0-0.2) Sodium Level 143 mmol/L (136-145) 145 mmol/L (136-145) Potassium Level 4.1 mmol/L (3.5-5.1) 3.8 mmol/L (3.5-5.1) Chloride Level 107 mmol/L (98-107) 110 mmol/L (98-107) Carbon Dioxide Level 27 mmol/L (21-32) 25 mmol/L (21-32) Anion Gap 9 (6-14) 10 (6-14) Blood Urea Nitrogen 11 mg/dL (7-20) 13 mg/dL (7-20) Creatinine 0.8 mg/dL (0.6-1.0) 0.6 mg/dL (0.6-1.0) Estimated GFR (Cockcroft-Gault) 76.9 107.2 BUN/Creatinine Ratio 14 (6-20) 22 (6-20) Glucose Level 114 mg/dL (70-99) 82 mg/dL (70-99) Calcium Level 8.6 mg/dL (8.5-10.1) 8.1 mg/dL (8.5-10.1) Magnesium Level 1.9 mg/dL (1.8-2.4) Total Bilirubin 0.5 mg/dL (0.2-1.0) 0.4 mg/dL (0.2-1.0) Aspartate Amino Transf (AST/SGOT) 199 U/L (15-37) 80 U/L (15-37) Alanine Aminotransferase (ALT/SGPT) 428 U/L (14-59) 276 U/L (14-59) Alkaline Phosphatase 446 U/L (46-116) 300 U/L (46-116) Troponin I Quantitative 0.021 ng/mL (0.000-0.055) Total Protein 7.4 g/dL (6.4-8.2) 6.1 g/dL (6.4-8.2) Albumin 3.5 g/dL (3.4-5.0) 2.8 g/dL (3.4-5.0) Albumin/Globulin Ratio 0.9 (1.0-1.7) 0.8 (1.0-1.7) Lipase 30231 U/L (73-393) 2531 U/L (73-393) Ethyl Alcohol Level < 10 mg/dL (0-10) Thyroid Stimulating Hormone (TSH) 0.109 uIU/mL (0.358-3.74) Laboratory Tests Test 05/19/19 15:00 05/19/19 16:10 05/20/19 06:20 05/20/19 06:25 Urine Collection Type Unknown Urine Color Roxy Urine Clarity Clear Urine pH 5.5 Urine Specific [place] 1.020 Urine Protein Negative mg/dL (NEG-TRACE) Urine Glucose (UA) Negative mg/dL (NEG) Urine Ketones (Stick) Trace mg/dL (NEG) Urine Blood Small (NEG) Urine Nitrite Negative (NEG) Urine Bilirubin Small (NEG) Urine Urobilinogen Dipstick 1.0 mg/dL (0.2 mg/dL) Urine Leukocyte Esterase Negative (NEG) Urine RBC 3-5 /HPF (0-2) Urine WBC Occ /HPF (0-4) Urine Squamous Epithelial Cells Mod /LPF Urine Bacteria Few /HPF (0-FEW) Urine Mucus Mod /LPF Urine Test Negative (NEG) Urine Opiates Screen Neg (NEG) Urine Methadone Screen Neg (NEG) Urine Barbiturates Neg (NEG) Urine Phencyclidine Screen Neg (NEG) Urine Amphetamine/Methamphetamine Neg (NEG) Urine Benzodiazepines Screen Neg (NEG) Urine Cocaine Screen Neg (NEG) Urine Cannabinoids Screen Neg (NEG) Urine Ethyl Alcohol Neg (NEG) White Blood Count 5.9 x10^3/uL (4.0-11.0) 4.8 x10^3/uL (4.0-11.0) Red Blood Count 5.01 x10^6/uL (3.50-5.40) 4.53 x10^6/uL (3.50-5.40) Hemoglobin 13.7 g/dL (12.0-15.5) 12.1 g/dL (12.0-15.5) Hematocrit 40.4 % (36.0-47.0) 36.4 % (36.0-47.0) Mean Corpuscular Volume 81 fL (79-100) 80 fL (79-100) Mean Corpuscular Hemoglobin 27 pg (25-35) 27 pg (25-35) Mean Corpuscular Hemoglobin Concent 34 g/dL (31-37) 33 g/dL (31-37) Red Cell Distribution Width 16.1 % (11.5-14.5) 16.2 % (11.5-14.5) Platelet Count 139 x10^3/uL (140-400) 134 x10^3/uL (140-400) Neutrophils (%) (Auto) 83 % (31-73) 61 % (31-73) Lymphocytes (%) (Auto) 11 % (24-48) 30 % (24-48) Monocytes (%) (Auto) 5 % (0-9) 8 % (0-9) Eosinophils (%) (Auto) 0 % (0-3) 2 % (0-3) Basophils (%) (Auto) 0 % (0-3) 0 % (0-3) Neutrophils # (Auto) 4.9 x10^3/uL (1.8-7.7) 2.9 x10^3/uL (1.8-7.7) Lymphocytes # (Auto) 0.6 x10^3/uL (1.0-4.8) 1.4 x10^3/uL (1.0-4.8) Monocytes # (Auto) 0.3 x10^3/uL (0.0-1.1) 0.4 x10^3/uL (0.0-1.1) Eosinophils # (Auto) 0.0 x10^3/uL (0.0-0.7) 0.1 x10^3/uL (0.0-0.7) Basophils # (Auto) 0.0 x10^3/uL (0.0-0.2) 0.0 x10^3/uL (0.0-0.2) Sodium Level 143 mmol/L (136-145) 145 mmol/L (136-145) Potassium Level 4.1 mmol/L (3.5-5.1) 3.8 mmol/L (3.5-5.1) Chloride Level 107 mmol/L (98-107) 110 mmol/L (98-107) Carbon Dioxide Level 27 mmol/L (21-32) 25 mmol/L (21-32) Anion Gap 9 (6-14) 10 (6-14) Blood Urea Nitrogen 11 mg/dL (7-20) 13 mg/dL (7-20) Creatinine 0.8 mg/dL (0.6-1.0) 0.6 mg/dL (0.6-1.0) Estimated GFR (Cockcroft-Gault) 76.9 107.2 BUN/Creatinine Ratio 14 (6-20) 22 (6-20) Glucose Level 114 mg/dL (70-99) 82 mg/dL (70-99) Calcium Level 8.6 mg/dL (8.5-10.1) 8.1 mg/dL (8.5-10.1) Magnesium Level 1.9 mg/dL (1.8-2.4) Total Bilirubin 0.5 mg/dL (0.2-1.0) 0.4 mg/dL (0.2-1.0) Aspartate Amino Transf (AST/SGOT) 199 U/L (15-37) 80 U/L (15-37) Alanine Aminotransferase (ALT/SGPT) 428 U/L (14-59) 276 U/L (14-59) Alkaline Phosphatase 446 U/L (46-116) 300 U/L (46-116) Troponin I Quantitative 0.021 ng/mL (0.000-0.055) Total Protein 7.4 g/dL (6.4-8.2) 6.1 g/dL (6.4-8.2) Albumin 3.5 g/dL (3.4-5.0) 2.8 g/dL (3.4-5.0) Albumin/Globulin Ratio 0.9 (1.0-1.7) 0.8 (1.0-1.7) Lipase 91254 U/L (73-393) 2531 U/L (73-393) Ethyl Alcohol Level < 10 mg/dL (0-10) Thyroid Stimulating Hormone (TSH) 0.109 uIU/mL (0.358-3.74) Assessment/Plan Assessment/Plan Gallstone pancreatitis, recommend initial supportive care, hydration, pain control, etc. Will need lap ricky in future, given clinical present suspect can be this hospitalization. Plan for FU labs, exam, potential surgery this week. NEELA BAILON MD May 20, 2019 14:18
[2019-05-20 15:10] VITALS: BP 99/56
[2019-05-20] MEDS: cefTRIAXone IV Push 1 GM VIAL. IVP SCH (15:19)
--- NOTE | 2019-05-20 15:27 | NUR ---
SW following pt for dc planning. Chart reviewed and discussed with RN. Pt lives at home with family. No SW noted at this time.
[2019-05-20 19:00] VITALS: BP 93/48
[2019-05-20 23:00] VITALS: BP 101/55
[2019-05-21 03:00] VITALS: BP 95/51
[2019-05-21 07:00] VITALS: BP 101/62
[2019-05-21 09:03] LABS: BASO % 0 % (0-3); EOS # 0.1 x10^3/uL (0.0-0.7); EOS % 3 % (0-3); HEMOGLOBIN 12.1 g/dL (12.0-15.5); LYMPH # 1.5 x10^3/uL (1.0-4.8); LYMPH % 37 % (24-48); MEAN CORPUSCULAR HEMOGLOBIN 27 pg (25-35); MEAN CORPUSCULAR HGB CONC 34 g/dL (31-37); MEAN CORPUSCULAR VOLUME 80 fL (79-100); MONO # 0.4 x10^3/uL (0.0-1.1); MONO % 9 % (0-9); NEUT # 2.1 x10^3/uL (1.8-7.7); NEUT % 52 % (31-73); PLATELET COUNT 143 x10^3/uL (140-400); RED BLOOD COUNT 4.51 x10^6/uL (3.50-5.40); RED CELL DISTRIBUTION WIDTH 15.7 % (11.5-14.5); WHITE BLOOD COUNT 4.1 x10^3/uL (4.0-11.0)
[2019-05-21 09:20] LABS: ALBUMIN 2.9 g/dL (3.4-5.0); ALBUMIN/GLOBULIN RATIO 0.8 (1.0-1.7); CALCIUM 8.4 mg/dL (8.5-10.1); CREATININE 0.6 mg/dL (0.6-1.0); GFR 107.2; POTASSIUM 3.9 mmol/L (3.5-5.1); TOTAL BILIRUBIN 0.4 mg/dL (0.2-1.0); TOTAL PROTEIN 6.4 g/dL (6.4-8.2)
[2019-05-21] MEDS: AMINO AC 3%/ELECTROLYTE/GLYCER 1,000 ML IV SCH ×2 (10:33→22:42)
[2019-05-21 10:50] VITALS: BP 100/55
--- NOTE | 2019-05-21 11:19 | PDOC ---
PROGRESS NOTES Subjective Subjective some pain this morning, better now Objective Objective Vital Signs Date Time Temp Pulse Resp B/P (MAP) Pulse Ox O2 Delivery O2 Flow Rate FiO2 05/21/19 10:50 97.8 52 18 100/55 (70) 98 Room Air 97.8 Intake and Output0 05/21/19 07:00 Intake Total 1000 ml Balance 1000 ml Intake Oral 0 ml IV Total 1000 ml # Voids 1 Physical Exam Abdomen: Soft, No tenderness Heart: Regular rate Extremities: No clubbing, No cyanosis General: Alert, Oriented X3 HEENT: Atraumatic Lungs: Clear to auscultation Neuro: Normal speech Psych/Mental Status: Mental status NL Assessment Assessment Problems Medical Problems: (1) Acute pancreatitis Status: Acute (2) Elevated LFTs Status: Acute Plan Plan of Care Gallstone pancreatitis, pain, enzymes improving; will plan for lap ricky , 05/23/19; try clear liquids Comment Review of Relevant I have reviewed the following items keyanna (where applicable) has been applied. Labs Laboratory Tests Test 05/19/19 15:00 05/19/19 16:10 05/20/19 06:20 05/20/19 06:25 Urine Collection Type Unknown Urine Color Roxy Urine Clarity Clear Urine pH 5.5 Urine Specific [place] 1.020 Urine Protein Negative mg/dL (NEG-TRACE) Urine Glucose (UA) Negative mg/dL (NEG) Urine Ketones (Stick) Trace mg/dL (NEG) Urine Blood Small (NEG) Urine Nitrite Negative (NEG) Urine Bilirubin Small (NEG) Urine Urobilinogen Dipstick 1.0 mg/dL (0.2 mg/dL) Urine Leukocyte Esterase Negative (NEG) Urine RBC 3-5 /HPF (0-2) Urine WBC Occ /HPF (0-4) Urine Squamous Epithelial Cells Mod /LPF Urine Bacteria Few /HPF (0-FEW) Urine Mucus Mod /LPF Urine Test Negative (NEG) Urine Opiates Screen Neg (NEG) Urine Methadone Screen Neg (NEG) Urine Barbiturates Neg (NEG) Urine Phencyclidine Screen Neg (NEG) Urine Amphetamine/Methamphetamine Neg (NEG) Urine Benzodiazepines Screen Neg (NEG) Urine Cocaine Screen Neg (NEG) Urine Cannabinoids Screen Neg (NEG) Urine Ethyl Alcohol Neg (NEG) White Blood Count 5.9 x10^3/uL (4.0-11.0) 4.8 x10^3/uL (4.0-11.0) Red Blood Count 5.01 x10^6/uL (3.50-5.40) 4.53 x10^6/uL (3.50-5.40) Hemoglobin 13.7 g/dL (12.0-15.5) 12.1 g/dL (12.0-15.5) Hematocrit 40.4 % (36.0-47.0) 36.4 % (36.0-47.0) Mean Corpuscular Volume 81 fL (79-100) 80 fL (79-100) Mean Corpuscular Hemoglobin 27 pg (25-35) 27 pg (25-35) Mean Corpuscular Hemoglobin Concent 34 g/dL (31-37) 33 g/dL (31-37) Red Cell Distribution Width 16.1 % (11.5-14.5) 16.2 % (11.5-14.5) Platelet Count 139 x10^3/uL (140-400) 134 x10^3/uL (140-400) Neutrophils (%) (Auto) 83 % (31-73) 61 % (31-73) Lymphocytes (%) (Auto) 11 % (24-48) 30 % (24-48) Monocytes (%) (Auto) 5 % (0-9) 8 % (0-9) Eosinophils (%) (Auto) 0 % (0-3) 2 % (0-3) Basophils (%) (Auto) 0 % (0-3) 0 % (0-3) Neutrophils # (Auto) 4.9 x10^3/uL (1.8-7.7) 2.9 x10^3/uL (1.8-7.7) Lymphocytes # (Auto) 0.6 x10^3/uL (1.0-4.8) 1.4 x10^3/uL (1.0-4.8) Monocytes # (Auto) 0.3 x10^3/uL (0.0-1.1) 0.4 x10^3/uL (0.0-1.1) Eosinophils # (Auto) 0.0 x10^3/uL (0.0-0.7) 0.1 x10^3/uL (0.0-0.7) Basophils # (Auto) 0.0 x10^3/uL (0.0-0.2) 0.0 x10^3/uL (0.0-0.2) Sodium Level 143 mmol/L (136-145) 145 mmol/L (136-145) Potassium Level 4.1 mmol/L (3.5-5.1) 3.8 mmol/L (3.5-5.1) Chloride Level 107 mmol/L (98-107) 110 mmol/L (98-107) Carbon Dioxide Level 27 mmol/L (21-32) 25 mmol/L (21-32) Anion Gap 9 (6-14) 10 (6-14) Blood Urea Nitrogen 11 mg/dL (7-20) 13 mg/dL (7-20) Creatinine 0.8 mg/dL (0.6-1.0) 0.6 mg/dL (0.6-1.0) Estimated GFR (Cockcroft-Gault) 76.9 107.2 BUN/Creatinine Ratio 14 (6-20) 22 (6-20) Glucose Level 114 mg/dL (70-99) 82 mg/dL (70-99) Calcium Level 8.6 mg/dL (8.5-10.1) 8.1 mg/dL (8.5-10.1) Magnesium Level 1.9 mg/dL (1.8-2.4) Total Bilirubin 0.5 mg/dL (0.2-1.0) 0.4 mg/dL (0.2-1.0) Aspartate Amino Transf (AST/SGOT) 199 U/L (15-37) 80 U/L (15-37) Alanine Aminotransferase (ALT/SGPT) 428 U/L (14-59) 276 U/L (14-59) Alkaline Phosphatase 446 U/L (46-116) 300 U/L (46-116) Troponin I Quantitative 0.021 ng/mL (0.000-0.055) Total Protein 7.4 g/dL (6.4-8.2) 6.1 g/dL (6.4-8.2) Albumin 3.5 g/dL (3.4-5.0) 2.8 g/dL (3.4-5.0) Albumin/Globulin Ratio 0.9 (1.0-1.7) 0.8 (1.0-1.7) Lipase 65826 U/L (73-393) 2531 U/L (73-393) Ethyl Alcohol Level < 10 mg/dL (0-10) Thyroid Stimulating Hormone (TSH) 0.109 uIU/mL (0.358-3.74) Hepatitis A IgM Antibody Nonreactive (Nonreactive) Hepatitis B Surface Antigen Nonreactive (Nonreactive) Hepatitis B Core IgM Antibody Nonreactive (Nonreactive) Hepatitis C IgG Antibody Nonreactive (Nonreactive) Test 05/21/19 06:51 05/21/19 08:14 White Blood Count 4.1 x10^3/uL (4.0-11.0) Red Blood Count 4.51 x10^6/uL (3.50-5.40) Hemoglobin 12.1 g/dL (12.0-15.5) Hematocrit 36.0 % (36.0-47.0) Mean Corpuscular Volume 80 fL (79-100) Mean Corpuscular Hemoglobin 27 pg (25-35) Mean Corpuscular Hemoglobin Concent 34 g/dL (31-37) Red Cell Distribution Width 15.7 % (11.5-14.5) Platelet Count 143 x10^3/uL (140-400) Neutrophils (%) (Auto) 52 % (31-73) Lymphocytes (%) (Auto) 37 % (24-48) Monocytes (%) (Auto) 9 % (0-9) Eosinophils (%) (Auto) 3 % (0-3) Basophils (%) (Auto) 0 % (0-3) Neutrophils # (Auto) 2.1 x10^3/uL (1.8-7.7) Lymphocytes # (Auto) 1.5 x10^3/uL (1.0-4.8) Monocytes # (Auto) 0.4 x10^3/uL (0.0-1.1) Eosinophils # (Auto) 0.1 x10^3/uL (0.0-0.7) Basophils # (Auto) 0.0 x10^3/uL (0.0-0.2) Sodium Level 141 mmol/L (136-145) Potassium Level 3.9 mmol/L (3.5-5.1) Chloride Level 106 mmol/L (98-107) Carbon Dioxide Level 25 mmol/L (21-32) Anion Gap 10 (6-14) Blood Urea Nitrogen 13 mg/dL (7-20) Creatinine 0.6 mg/dL (0.6-1.0) Estimated GFR (Cockcroft-Gault) 107.2 BUN/Creatinine Ratio 22 (6-20) Glucose Level 83 mg/dL (70-99) Calcium Level 8.4 mg/dL (8.5-10.1) Total Bilirubin 0.4 mg/dL (0.2-1.0) Aspartate Amino Transf (AST/SGOT) 40 U/L (15-37) Alanine Aminotransferase (ALT/SGPT) 214 U/L (14-59) Alkaline Phosphatase 247 U/L (46-116) Total Protein 6.4 g/dL (6.4-8.2) Albumin 2.9 g/dL (3.4-5.0) Albumin/Globulin Ratio 0.8 (1.0-1.7) Lipase 535 U/L (73-393) Laboratory Tests Test 05/21/19 06:51 05/21/19 08:14 White Blood Count 4.1 x10^3/uL (4.0-11.0) Red Blood Count 4.51 x10^6/uL (3.50-5.40) Hemoglobin 12.1 g/dL (12.0-15.5) Hematocrit 36.0 % (36.0-47.0) Mean Corpuscular Volume 80 fL (79-100) Mean Corpuscular Hemoglobin 27 pg (25-35) Mean Corpuscular Hemoglobin Concent 34 g/dL (31-37) Red Cell Distribution Width 15.7 % (11.5-14.5) Platelet Count 143 x10^3/uL (140-400) Neutrophils (%) (Auto) 52 % (31-73) Lymphocytes (%) (Auto) 37 % (24-48) Monocytes (%) (Auto) 9 % (0-9) Eosinophils (%) (Auto) 3 % (0-3) Basophils (%) (Auto) 0 % (0-3) Neutrophils # (Auto) 2.1 x10^3/uL (1.8-7.7) Lymphocytes # (Auto) 1.5 x10^3/uL (1.0-4.8) Monocytes # (Auto) 0.4 x10^3/uL (0.0-1.1) Eosinophils # (Auto) 0.1 x10^3/uL (0.0-0.7) Basophils # (Auto) 0.0 x10^3/uL (0.0-0.2) Sodium Level 141 mmol/L (136-145) Potassium Level 3.9 mmol/L (3.5-5.1) Chloride Level 106 mmol/L (98-107) Carbon Dioxide Level 25 mmol/L (21-32) Anion Gap 10 (6-14) Blood Urea Nitrogen 13 mg/dL (7-20) Creatinine 0.6 mg/dL (0.6-1.0) Estimated GFR (Cockcroft-Gault) 107.2 BUN/Creatinine Ratio 22 (6-20) Glucose Level 83 mg/dL (70-99) Calcium Level 8.4 mg/dL (8.5-10.1) Total Bilirubin 0.4 mg/dL (0.2-1.0) Aspartate Amino Transf (AST/SGOT) 40 U/L (15-37) Alanine Aminotransferase (ALT/SGPT) 214 U/L (14-59) Alkaline Phosphatase 247 U/L (46-116) Total Protein 6.4 g/dL (6.4-8.2) Albumin 2.9 g/dL (3.4-5.0) Albumin/Globulin Ratio 0.8 (1.0-1.7) Lipase 535 U/L (73-393) Medications Current Medications Sodium Chloride 1,000 ml @ 1,000 mls/hr 1X ONCE IV Last administered on 05/19/19at 16:20; Start 05/19/19 at 16:00; Stop 05/19/19 at 16:59; Status DC Ondansetron HCl (Zofran) 4 mg 1X ONCE IV Last administered on 05/19/19at 16:18; Start 05/19/19 at 16:00; Stop 05/19/19 at 16:01; Status DC Fentanyl Citrate (Fentanyl 2ml Vial) 25 mcg 1X ONCE IV Last administered on 05/19/19at 16:19; Start 05/19/19 at 16:00; Stop 05/19/19 at 16:01; Status DC Iohexol (Omnipaque 300 Mg/ml) 75 ml 1X ONCE IV Last administered on 05/19/19at 18:54; Start 05/19/19 at 17:45; Stop 05/19/19 at 18:05; Status DC Iohexol (Omnipaque 300 Mg/ml) 75 ml 1X ONCE IV ; Start 05/19/19 at 18:00; Stop 05/19/19 at 18:05; Status DC Info (CONTRAST GIVEN -- Rx MONITORING) 1 each PRN DAILY PRN MC SEE COMMENTS; Start 05/19/19 at 18:15; Stop 05/21/19 at 18:14 Ondansetron HCl (Zofran) 4 mg PRN Q8HRS PRN IV NAUSEA/VOMITING; Start 05/19/19 at 18:45; Stop 05/20/19 at 18:44; Status DC Fentanyl Citrate (Fentanyl 2ml Vial) 50 mcg PRN Q2HR PRN IV PAIN Last administered on 05/20/19at 15:32; Start 05/19/19 at 18:45; Stop 05/20/19 at 18:44; Status DC Sodium Chloride 1,000 ml @ 125 mls/hr 1X ONCE IV Last administered on 05/19/19at 20:27; Start 05/19/19 at 18:45; Stop 05/20/19 at 02:45; Status DC Amino Acids/ Glycerin/ Electrolytes 1,000 ml @ 80 mls/hr [id number] IV Last administered on 05/21/19at 10:33; Start 05/20/19 at 09:00 Ceftriaxone Sodium (Rocephin) 1 gm Q24H IVP Last administered on 05/20/19at 15:19; Start 05/20/19 at 15:00 Vitals/I & O Vital Sign - Last 24 Hours 05/20/19 05/20/19 05/20/19 05/20/19 15:10 19:00 20:00 23:00 Temp 98.2 97.4 97.4 98.2 97.4 97.4 Pulse 44 44 66 Resp 14 18 18 B/P (MAP) 99/56 (70) 93/48 (63) 101/55 (70) Pulse Ox 100 97 100 O2 Delivery Room Air Room Air Room Air Room Air 05/21/19 05/21/19 05/21/1919 03:00 07:00 08:00 10:50 Temp 98.0 98.0 97.8 98.0 98.0 97.8 Pulse 49 54 52 Resp 18 18 18 B/P (MAP) 95/51 (66) 101/62 (75) 100/55 (70) Pulse Ox 98 98 98 O2 Delivery Room Air Room Air Room Air Room Air Intake and Output 05/20/19 05/20/19 05/21/19 15:00 23:00 07:00 Intake Total 0 ml 1000 ml Balance 0 ml 1000 ml NEELA BAILON MD May 21, 2019 11:19
--- NOTE | 2019-05-21 13:22 | PDOC ---
Subjective: Subjective: Better today. Tolerating broth. No abd pain or n/v. Objective: Vital Signs: Vital Signs Date Time Temp Pulse Resp B/P (MAP) Pulse Ox O2 Delivery O2 Flow Rate FiO2 05/21/19 10:50 97.8 52 18 100/55 (70) 98 Room Air 97.8 Labs: Laboratory Tests Test 05/21/19 06:51 05/21/19 08:14 White Blood Count 4.1 x10^3/uL Red Blood Count 4.51 x10^6/uL Hemoglobin 12.1 g/dL Hematocrit 36.0 % Mean Corpuscular Volume 80 fL Mean Corpuscular Hemoglobin 27 pg Mean Corpuscular Hemoglobin Concent 34 g/dL Red Cell Distribution Width 15.7 % Platelet Count 143 x10^3/uL Neutrophils (%) (Auto) 52 % Lymphocytes (%) (Auto) 37 % Monocytes (%) (Auto) 9 % Eosinophils (%) (Auto) 3 % Basophils (%) (Auto) 0 % Neutrophils # (Auto) 2.1 x10^3/uL Lymphocytes # (Auto) 1.5 x10^3/uL Monocytes # (Auto) 0.4 x10^3/uL Eosinophils # (Auto) 0.1 x10^3/uL Basophils # (Auto) 0.0 x10^3/uL Sodium Level 141 mmol/L Potassium Level 3.9 mmol/L Chloride Level 106 mmol/L Carbon Dioxide Level 25 mmol/L Anion Gap 10 Blood Urea Nitrogen 13 mg/dL Creatinine 0.6 mg/dL Estimated GFR (Cockcroft-Gault) 107.2 BUN/Creatinine Ratio 22 Glucose Level 83 mg/dL Calcium Level 8.4 mg/dL Total Bilirubin 0.4 mg/dL Aspartate Amino Transf (AST/SGOT) 40 U/L Alanine Aminotransferase (ALT/SGPT) 214 U/L Alkaline Phosphatase 247 U/L Total Protein 6.4 g/dL Albumin 2.9 g/dL Albumin/Globulin Ratio 0.8 Lipase 535 U/L Imaging: RUQ US 05/20 Findings: Hepatic echotexture normal. Portal venous and hepatic venous flow are unremarkable. Numerous small calculi present within the gallbladder. Sonographic Fitzgerald sign is reported. Gallbladder wall thickness of 0.6 cm present. No intrahepatic biliary dilatation. No pericholecystic fluid. Liver length is 17 cm. Common bile duct measures 0.54 cm. Right kidney measures 11.3 cm x 4.6 cm x 4.3 cm. Normal right renal contour and echotexture is identified. Normal right renal cortical thickness. Proximal pancreas is partially visualized. The pancreas is otherwise obscured by bowel gas. No upper abdominal ascites. Inferior vena cava is unremarkable. Abdominal aortic diameter is unremarkable. Impression: Cholelithiasis. Gallbladder wall thickening and sonographic Fitzgerald sign raise question of cholecystitis. No biliary dilatation. PE: GEN: NAD LUNGS: CTAB HEART: bradycardic ABD: soft NEURO/PSYCH: A & O �3, flat A/P: Gallstone pancreatitis Abnormal LFTs - better, normal CBD on US, Hep panel neg H/o celiac disease -- Symptoms and labs better. Continue per surgery - possible cholecystectomy . SAMPSON MERAZ May 21, 2019 13:22
[2019-05-21 15:00] VITALS: BP 103/44
[2019-05-21] MEDS: cefTRIAXone IV Push 1 GM VIAL. IVP SCH (15:26)
--- NOTE | 2019-05-21 17:16 | PDOC ---
PROGRESS NOTES Subjective less pain, tolerating clear liquids, surgery planned for Objective Afebrile General: comfortable Heart: RRR Lungs: CTA Abd: minimal RUQ tenderness Ext: no C/C/E Skin: good turgor, no jaundice Vital Signs Vital Signs Date Time Temp Pulse Resp B/P (MAP) Pulse Ox O2 Delivery O2 Flow Rate FiO2 05/21/19 15:00 97.8 51 18 103/44 (63) 97 Room Air 97.8 I & O Intake and Output 05/21/19 07:00 Intake Total 1000 ml Balance 1000 ml Intake Oral 0 ml IV Total 1000 ml # Voids 1 Assessment and Plan gallstone pancreatitis - labs improved, tolerating clears, continue IV hydration and nutrition, surgery 05/23 cholelithiasis, likely cholecystitis - US confirms sono + Fitzgerald's sign dysuria - cx urine pending, cont Rocephin hypothyroidism - overtreated per lab, resume po dose 05/22 depression - resume sertraline in am mild splenomegaly 4.5 cm fibroid hx of morbid obesity Problems Medical Problems: (1) Acute pancreatitis Status: Acute (2) Elevated LFTs Status: Acute Rachana MCCLOUD MD May 21, 2019 17:16
[2019-05-21 19:00] VITALS: BP 97/55
[2019-05-21] MEDS: LACTOBACILLUS RHAMNOSUS GG 1 CAPSULE. PO SCH (22:05)
[2019-05-21 23:06] VITALS: BP 103/54
[2019-05-22 03:00] VITALS: BP 94/48
[2019-05-22] MEDS: LEVOTHYROXINE 112 MCG TABLET PO SCH (06:31)
[2019-05-22 06:34] VITALS: BP 92/52
[2019-05-22] MEDS: LACTOBACILLUS RHAMNOSUS GG 1 CAPSULE. PO SCH ×2 (08:47→21:00)
[2019-05-22] MEDS: SERTRALINE 50 MG TABLET. PO SCH ×2 (08:47→08:50)
--- NOTE | 2019-05-22 09:26 | NUR ---
SW following pt. Notes indicate possible cholecystectomy on . Will continue to follow.
[2019-05-22 09:44] LABS: ALBUMIN 3.1 g/dL (3.4-5.0); ALBUMIN/GLOBULIN RATIO 0.8 (1.0-1.7); CALCIUM 8.6 mg/dL (8.5-10.1); CREATININE 0.7 mg/dL (0.6-1.0); GFR 89.7; POTASSIUM 4.1 mmol/L (3.5-5.1); TOTAL BILIRUBIN 0.5 mg/dL (0.2-1.0); TOTAL PROTEIN 6.9 g/dL (6.4-8.2)
[2019-05-22 11:00] VITALS: BP 108/49
[2019-05-22] MEDS: AMINO AC 3%/ELECTROLYTE/GLYCER 1,000 ML IV SCH ×2 (12:59→21:01)
--- NOTE | 2019-05-22 13:53 | PDOC ---
PROGRESS NOTES Subjective Labs better, tolerating clear liquids, refused sertraline, surgery planned for tomorrow am Objective Afebrile General: NAD, comfortable Heart: RRR Lungs: CTA Abd: soft, minimal tenderness Ext: no C/C/E labs noted Vital Signs Vital Signs Date Time Temp Pulse Resp B/P (MAP) Pulse Ox O2 Delivery O2 Flow Rate FiO2 05/22/19 11:00 98.1 47 14 108/49 (68) 98 Room Air 98.1 I & O Intake and Output 05/22/19 06:59 Intake Total 3340 ml Output Total 2 ml Balance 3338 ml Intake Oral 1340 ml IV Total 2000 ml Output Urine Total 2 ml # Voids 4 Assessment and Plan gallstone pancreatitis - labs improved, tolerating clears, continue IV hydration and nutrition, surgery 05/23 cholelithiasis, likely cholecystitis - US confirms sono + Fitzgerald's sign dysuria - cx urine pending, cont Rocephin hypothyroidism - overtreated per lab, resume po dose 05/22 depression - resume sertraline in am - pt declined to take mild splenomegaly 4.5 cm fibroid hx of morbid obesity Rachana MCCLOUD MD May 22, 2019 13:53
--- NOTE | 2019-05-22 14:08 | PDOC ---
Subjective: Subjective: Feeling much better. Objective: Vital Signs: Vital Signs Date Time Temp Pulse Resp B/P (MAP) Pulse Ox O2 Delivery O2 Flow Rate FiO2 05/22/19 11:00 98.1 47 14 108/49 (68) 98 Room Air 98.1 Labs: Laboratory Tests Test 05/22/19 08:15 Sodium Level 140 mmol/L Potassium Level 4.1 mmol/L Chloride Level 106 mmol/L Carbon Dioxide Level 25 mmol/L Anion Gap 9 Blood Urea Nitrogen 12 mg/dL Creatinine 0.7 mg/dL Estimated GFR (Cockcroft-Gault) 89.7 BUN/Creatinine Ratio 17 Glucose Level 103 mg/dL Calcium Level 8.6 mg/dL Total Bilirubin 0.5 mg/dL Aspartate Amino Transf (AST/SGOT) 25 U/L Alanine Aminotransferase (ALT/SGPT) 173 U/L Alkaline Phosphatase 223 U/L Total Protein 6.9 g/dL Albumin 3.1 g/dL Albumin/Globulin Ratio 0.8 Lipase 377 U/L PE: GEN: NAD, smiling LUNGS: CTAB HEART: RRR ABD: NABS, S/ND/NT NEURO/PSYCH: A & O �3 A/P: Gallstone pancreatitis Abnormal LFTs - still improving -- Continue per surgery. SAMPSON MERAZ May 22, 2019 14:08
[2019-05-22] MEDS ORDERED: POLYETHYLENE GLYCOL 3350 17 GM PACKET. PO PRN (14:15)
[2019-05-22 14:46] VITALS: BP 102/54
--- NOTE | 2019-05-22 14:48 | PDOC ---
PROGRESS NOTES Subjective Subjective Doing well, pain improved Objective Objective Vital Signs Date Time Temp Pulse Resp B/P (MAP) Pulse Ox O2 Delivery O2 Flow Rate FiO2 05/22/19 14:46 97.8 60 16 102/54 (70) 99 Room Air 97.8 Intake and Output 05/22/19 07:00 Intake Total 3340 ml Output Total 2 ml Balance 3338 ml Intake Oral 1340 ml IV Total 2000 ml Output Urine Total 2 ml # Voids 4 Physical Exam Abdomen: Soft, No tenderness Assessment Assessment Problems Medical Problems: (1) Acute pancreatitis Status: Acute (2) Elevated LFTs Status: Acute Plan Plan of Care Improved, lipase normalizing, lap ricky in am Comment Review of Relevant I have reviewed the following items keyanna (where applicable) has been applied. Labs Laboratory Tests Test 05/21/19 06:51 05/21/19 08:14 05/22/19 08:15 White Blood Count 4.1 x10^3/uL (4.0-11.0) Red Blood Count 4.51 x10^6/uL (3.50-5.40) Hemoglobin 12.1 g/dL (12.0-15.5) Hematocrit 36.0 % (36.0-47.0) Mean Corpuscular Volume 80 fL (79-100) Mean Corpuscular Hemoglobin 27 pg (25-35) Mean Corpuscular Hemoglobin Concent 34 g/dL (31-37) Red Cell Distribution Width 15.7 % (11.5-14.5) Platelet Count 143 x10^3/uL (140-400) Neutrophils (%) (Auto) 52 % (31-73) Lymphocytes (%) (Auto) 37 % (24-48) Monocytes (%) (Auto) 9 % (0-9) Eosinophils (%) (Auto) 3 % (0-3) Basophils (%) (Auto) 0 % (0-3) Neutrophils # (Auto) 2.1 x10^3/uL (1.8-7.7) Lymphocytes # (Auto) 1.5 x10^3/uL (1.0-4.8) Monocytes # (Auto) 0.4 x10^3/uL (0.0-1.1) Eosinophils # (Auto) 0.1 x10^3/uL (0.0-0.7) Basophils # (Auto) 0.0 x10^3/uL (0.0-0.2) Sodium Level 141 mmol/L (136-145) 140 mmol/L (136-145) Potassium Level 3.9 mmol/L (3.5-5.1) 4.1 mmol/L (3.5-5.1) Chloride Level 106 mmol/L (98-107) 106 mmol/L (98-107) Carbon Dioxide Level 25 mmol/L (21-32) 25 mmol/L (21-32) Anion Gap 10 (6-14) 9 (6-14) Blood Urea Nitrogen 13 mg/dL (7-20) 12 mg/dL (7-20) Creatinine 0.6 mg/dL (0.6-1.0) 0.7 mg/dL (0.6-1.0) Estimated GFR (Cockcroft-Gault) 107.2 89.7 BUN/Creatinine Ratio 22 (6-20) 17 (6-20) Glucose Level 83 mg/dL (70-99) 103 mg/dL (70-99) Calcium Level 8.4 mg/dL (8.5-10.1) 8.6 mg/dL (8.5-10.1) Total Bilirubin 0.4 mg/dL (0.2-1.0) 0.5 mg/dL (0.2-1.0) Aspartate Amino Transf (AST/SGOT) 40 U/L (15-37) 25 U/L (15-37) Alanine Aminotransferase (ALT/SGPT) 214 U/L (14-59) 173 U/L (14-59) Alkaline Phosphatase 247 U/L (46-116) 223 U/L (46-116) Total Protein 6.4 g/dL (6.4-8.2) 6.9 g/dL (6.4-8.2) Albumin 2.9 g/dL (3.4-5.0) 3.1 g/dL (3.4-5.0) Albumin/Globulin Ratio 0.8 (1.0-1.7) 0.8 (1.0-1.7) Lipase 535 U/L (73-393) 377 U/L (73-393) Laboratory Tests Test 05/22/19 08:15 Sodium Level 140 mmol/L (136-145) Potassium Level 4.1 mmol/L (3.5-5.1) Chloride Level 106 mmol/L (98-107) Carbon Dioxide Level 25 mmol/L (21-32) Anion Gap 9 (6-14) Blood Urea Nitrogen 12 mg/dL (7-20) Creatinine 0.7 mg/dL (0.6-1.0) Estimated GFR (Cockcroft-Gault) 89.7 BUN/Creatinine Ratio 17 (6-20) Glucose Level 103 mg/dL (70-99) Calcium Level 8.6 mg/dL (8.5-10.1) Total Bilirubin 0.5 mg/dL (0.2-1.0) Aspartate Amino Transf (AST/SGOT) 25 U/L (15-37) Alanine Aminotransferase (ALT/SGPT) 173 U/L (14-59) Alkaline Phosphatase 223 U/L (46-116) Total Protein 6.9 g/dL (6.4-8.2) Albumin 3.1 g/dL (3.4-5.0) Albumin/Globulin Ratio 0.8 (1.0-1.7) Lipase 377 U/L (73-393) Medications Current Medications Sodium Chloride 1,000 ml @ 1,000 mls/hr 1X ONCE IV Last administered on 05/19/19 16:20; Start 05/19/19 at 16:00; Stop 05/19/19 at 16:59; Status DC Ondansetron HCl (Zofran) 4 mg 1X ONCE IV Last administered on 05/19/19 16:18; Start 05/19/19 at 16:00; Stop 05/19/19 at 16:01; Status DC Fentanyl Citrate (Fentanyl 2ml Vial) 25 mcg 1X ONCE IV Last administered on 05/19/19 16:19; Start 05/19/19 at 16:00; Stop 05/19/19 at 16:01; Status DC Iohexol (Omnipaque 300 Mg/ml) 75 ml 1X ONCE IV Last administered on 05/19/19at 18:54; Start 05/19/19 at 17:45; Stop 05/19/19 at 18:05; Status DC Iohexol (Omnipaque 300 Mg/ml) 75 ml 1X ONCE IV ; Start 05/19/19 at 18:00; Stop 05/19/19 at 18:05; Status DC Info (CONTRAST GIVEN -- Rx MONITORING) 1 each PRN DAILY PRN MC SEE COMMENTS; Start 05/19/19 at 18:15; Stop 05/21/19 at 18:14; Status DC Ondansetron HCl (Zofran) 4 mg PRN Q8HRS PRN IV NAUSEA/VOMITING; Start 05/19/19 at 18:45; Stop 05/20/19 at 18:44; Status DC Fentanyl Citrate (Fentanyl 2ml Vial) 50 mcg PRN Q2HR PRN IV PAIN Last administered on 05/20/19at 15:32; Start 05/19/19 at 18:45; Stop 05/20/19 at 18:44; Status DC Sodium Chloride 1,000 ml @ 125 mls/hr 1X ONCE IV Last administered on 05/19/19at 20:27; Start 05/19/19 at 18:45; Stop 05/20/19 at 02:45; Status DC Amino Acids/ Glycerin/ Electrolytes 1,000 ml @ 80 mls/hr [id number] IV Last administered on 05/22/19at 12:59; Start 05/20/19 at 09:00 Ceftriaxone Sodium (Rocephin) 1 gm Q24H IVP Last administered on 05/21/19at 15:26; Start 05/20/19 at 15:00 Lactobacillus Rhamnosus (Culturelle) 1 cap BID PO Last administered on 05/22/19at 08:48; Start 05/21/19 at 21:00 Levothyroxine Sodium (Synthroid) 112 mcg DAILY06 PO Last administered on 05/22/19at 06:31; Start 05/22/19 at 06:00 Sertraline HCl (Zoloft) 50 mg DAILY PO ; Start 05/22/19 at 09:00 Polyethylene Glycol (miraLAX PACKET) 17 gm PRN DAILY PRN PO CONSTIPATION; Start 05/22/19 at 14:15 Vitals/I & O Vital Sign - Last 24 Hours 05/21/19 05/21/19 05/21/19 05/21/19 15:00 19:00 20:20 23:06 Temp 97.8 97.9 98.1 97.8 97.9 98.1 Pulse 51 51 68 Resp 18 16 16 B/P (MAP) 103/44 (63) 97/55 (69) 103/54 (70) Pulse Ox 97 100 100 O2 Delivery Room Air Room Air Room Air Room Air 05/22/19 05/22/19 05/22/19 05/22/19 03:00 06:34 08:00 11:00 Temp 98.8 97.6 98.1 98.8 97.6 98.1 Pulse 56 67 47 Resp 16 16 14 B/P (MAP) 94/48 (63) 92/52 (65) 108/49 (68) Pulse Ox 96 97 98 O2 Delivery Room Air Room Air Room Air Room Air 05/22/19 14:46 Temp 97.8 97.8 Pulse 60 Resp 16 B/P (MAP) 102/54 (70) Pulse Ox 99 O2 Delivery Room Air Intake and Output 05/21/19 05/21/19 05/22/19 15:00 23:00 07:00 Intake Total 1500 ml 1600 ml 240 ml Output Total 2 ml Balance 1500 ml 1600 ml 238 ml NEELA BAILON MD May 22, 2019 14:48
[2019-05-22] MEDS ORDERED: ZOLPIDEM 5 MG TABLET. PO PRN (18:45)
[2019-05-22 19:00] VITALS: BP 100/56
[2019-05-22] MEDS: cefTRIAXone IV Push 1 GM VIAL. IVP SCH (19:34)
[2019-05-22 23:00] VITALS: BP 105/58
[2019-05-23] VITALS (12 sets, daily range): BP systolic 93–127; BP diastolic 46–63
[2019-05-23] MEDS: LEVOTHYROXINE 112 MCG TABLET PO SCH (05:50)
[2019-05-23] MEDS ORDERED: IV RINGERS,LACTATED 1000ML 1,000 ML IV SCH (07:00)
[2019-05-23] MEDS ORDERED: ONDANSETRON PF 4 MG/2 ML VIAL. IV PRN (07:00)
[2019-05-23] MEDS ORDERED: MORPHINE SULFATE 2 MG/ML VIAL. IV PRN (07:00)
[2019-05-23] MEDS ORDERED: HYDROmorphone 2 MG/ML VIAL IV PRN (07:00)
[2019-05-23] MEDS ORDERED: fentaNYL PF VIAL 100 MCG/2 ML VIAL IV PRN (07:00)
[2019-05-23] MEDS ORDERED: LIDOCAINE 1% PF 2 ML VIAL. ID PRN (07:00)
[2019-05-23] MEDS ORDERED: SURGICEL HEMOSTAT 4X8 EACH. ONE (07:03)
[2019-05-23] MEDS ORDERED: IOHEXOL 300 MG/ML 50 ML VIAL. ONE (07:03)
[2019-05-23] MEDS ORDERED: BUPIVACAINE MPF 0.5% 30 ML VIAL. ONE (07:03)
[2019-05-23] MEDS ORDERED: SUCCINYLCHOLINE 200 MG/10 ML VIAL. ONE (07:42)
[2019-05-23] MEDS ORDERED: fentaNYL PF VIAL 100 MCG/2 ML VIAL ONE ×3 (07:42→10:23)
[2019-05-23] MEDS ORDERED: PROPOFOL 20 ML IV ONE (07:42)
[2019-05-23] MEDS ORDERED: LIDOCAINE 2% PF 5 ML VIAL. ONE (07:42)
[2019-05-23] MEDS ORDERED: ROCURONIUM 50 MG/5 ML VIAL. ONE (07:42)
[2019-05-23] MEDS ORDERED: ONDANSETRON PF 4 MG/2 ML VIAL. ONE (08:40)
[2019-05-23] MEDS ORDERED: DEXAMETHASONE SOD PHOS 4 MG/ML VIAL ONE (08:40)
[2019-05-23] MEDS ORDERED: DESFLURANE 31 TO 60 MINUTES IH ONE (08:40)
[2019-05-23] MEDS: SERTRALINE 50 MG TABLET. PO SCH (09:00)
[2019-05-23] MEDS ORDERED: GLYCOPYRROLATE 1 MG/5 ML VIAL. ONE (09:03)
[2019-05-23] MEDS ORDERED: NEOSTIGMINE METHYLSULFATE 5 MG/5 ML SYRINGE. ONE (09:03)
--- NOTE | 2019-05-23 09:28 | RAD ---
Intraoperative fluoroscopic support 05/23/2019 Discussion: Intraoperative fluoroscopic support was provided during an intraoperative cholangiogram. Contrast opacification of the cystic duct, common bile duct, and duodenum noted. Minimal filling of the intrahepatic biliary tree noted. Please refer to surgical notes for intraoperative imaging findings and procedural details. Total fluoroscopy time: 0.17 minutes Exposures: 3 IMPRESSION: Intraoperative fluoroscopic support as described. Electronically signed by: Luís Brower MD (05/23/2019 9:25 AM) [id number]
--- NOTE | 2019-05-23 09:58 | PDOC4 ---
Operative Note Operative Note Operative Note: Preoperative Diagnosis: Gallstone pancreatitis Postoperative Diagnosis: Same Procedure: Laparoscopic cholecystectomy with intraoperative cholangiogram Surgeons: Randy Job Counselor: Adelaida KELLY Anesthesia: Gen. Estimated Blood Loss: 100 mL Specimen: Gallbladder to pathology Drains: None Complications: None Indications: The patient is a 48 year old female who was admitted with gallstone pancreatitis. Surgical treatment was offered by means of a laparoscopic cholecystectomy. The risks of surgery were discussed which include bleeding, infection, bile duct injury, bile leak, pain, the potential for additional surgeries or procedures. The patient understands and would like to proceed. Description: The patient was taken to the operating room and laid supine on the operating table. General anesthesia was performed. The abdomen was prepped with ChloraPrep and draped in a standard surgical fashion. A small infr aumbilical incision was made with a scalpel. The Veress needle was then inserted and a pneumoperitoneum was then created. A 5 mm trocar was then inserted and the laparoscope was introduced. In the upper midabdomen a 5 mm trocar was inserted and in the right upper quadrant two 2.3 mm mini lap graspers were inserted. The gallbladder was retracted cephalad. The cystic duct was d issected free from surrounding tissues. One clip was placed on the duct near the gallbladder junction. An opening was made in the duct and a cholangiocatheter placed within and secured with a clip. Using contrast dye and fluoroscopy an intraoperative cholangiogram was performed that appeared unremarkable. The clip and catheter were then withdrawn. Three clips were placed on the cystic duct and it was divided. The cystic artery was then identified, dissected free, doubly clipped and divided as well. The gallbladder was then mobilized away from the liver with cautery. A surgicel pack was placed on the fossa to assist with some oozing. The umbilical 5 millimeter trocar was exchanged for an 11 millimeter trocar. The gallbladder was then placed in an en doscopic bag and extracted at the umbilical trocar site. The fascia there was closed with an 0 Vicryl suture. All blood and irrigation fluid was suctioned and hemostasis was good. The remaining ports were removed and the pneumoperitoneum was relieved. The skin incisions were injected with half percent Marcaine with epinephrine, and all were closed using 4-0 Monocryl suture. Steri-Strips and dressings were then applied. The patient tolerated the procedure well and was sent to the recovery room in stable condition. At the end of the case all counts were correct. NEELA BAILON MD May 23, 2019 09:58
[2019-05-23] MEDS: PROCHLORPERAZINE 10 MG/2 ML VIAL. IV PRN ×2 (10:03→10:38)
[2019-05-23] MEDS: fentaNYL PF VIAL 100 MCG/2 ML VIAL IV PRN ×3 (10:04→10:27)
[2019-05-23] MEDS ORDERED: oxyCODONE/APAP 5/325 1 TAB TABLET PO PRN ×2 (10:15)
[2019-05-23] MEDS: AMINO AC 3%/ELECTROLYTE/GLYCER 1,000 ML IV SCH (12:00)
--- NOTE | 2019-05-23 12:04 | PDOC ---
Objective: Vital Signs: Vital Signs Date Time Temp Pulse Resp B/P (MAP) Pulse Ox O2 Delivery O2 Flow Rate FiO2 05/23/19 11:42 98.0 64 18 96/55 (69) 100 Room Air 98.0 05/23/19 10:12 8.0 Imaging: IOC 05/23 Contrast opacification of the cystic duct, common bile duct, and duodenum noted. Minimal filling of the intrahepatic biliary tree noted. PE: GEN: NAD LUNGS: room air ABD: ice pack to RUQ NEURO/PSYCH: sleeping, not awakened A/P: Gallstone pancreatitis s/p cholecystectomy -- IOC unremarkable, continue per surgery. SAMPSON MERAZ May 23, 2019 12:04
[2019-05-23] MEDS: LACTOBACILLUS RHAMNOSUS GG 1 CAPSULE. PO SCH ×2 (12:59→20:59)
--- NOTE | 2019-05-23 13:00 | NUR ---
pt requesting food and encouraged to try clear or full liquids first. diet was AAT. pt needs gluten free and did not want a liquid meal. pt advised to order something bland and small portions. pt requesting to be discharged after lunch. after eating rice and meat, pt c/o 10/10 pain. percocet given as this is the only pain med available at this time. will reassess pain as needed.
[2019-05-23] MEDS: cefTRIAXone IV Push 1 GM VIAL. IVP SCH (16:08)
[2019-05-24] MEDS: AMINO AC 3%/ELECTROLYTE/GLYCER 1,000 ML IV SCH (00:30)
[2019-05-24 03:21] VITALS: BP 116/75
[2019-05-24] MEDS: LEVOTHYROXINE 112 MCG TABLET PO SCH (06:23)
[2019-05-24 07:00] VITALS: BP 112/60
[2019-05-24] MEDS: LACTOBACILLUS RHAMNOSUS GG 1 CAPSULE. PO SCH (08:11)
[2019-05-24] MEDS: SERTRALINE 50 MG TABLET. PO SCH (08:11)
[2019-05-24] MEDS ORDERED: LEVO175T5 PO (08:51)
[2019-05-24] MEDS ORDERED: OXYC1TAB15 PO (08:52)
--- NOTE | 2019-05-24 09:44 | PDOC ---
SURGICAL PROGRESS NOTE Subjective Patient doing quite well tolerating regular diet minimal pain Vital Signs Vital Signs Date Time Temp Pulse Resp B/P (MAP) Pulse Ox O2 Delivery O2 Flow Rate FiO2 05/24/19 08:00 Room Air 05/24/19 07:00 97.8 54 18 112/60 (77) 98 97.8 05/23/19 10:12 8.0 I&O Intake and Output 05/24/19 06:59 Intake Total 2750 ml Output Total 100 ml Balance 2650 ml Intake Oral 800 ml IV Total 1950 ml Estimated Blood Loss 100 ml # Voids 6 PATIENT HAS A WU: No General: Alert, Oriented X3, Cooperative, mild distress Abdomen: Normal bowel sounds, Soft, Other (mild incisional tenderness wounds clean dry and intact) Problem List Problems Medical Problems: (1) Acute pancreatitis Status: Acute (2) Elevated LFTs Status: Acute Assessment/Plan Status post laparoscopic cholecystectomy doing quite well from surgical standpoint to be discharged home to follow-up with in 2 weeks RO LACEY MD May 24, 2019 09:44
--- NOTE | 2019-05-24 09:50 | NUR ---
Discharge Note: PT DISCHARGED HOME WITH SELF CARE. PT LEFT FACILITY AT 0950 VIA PRIVATE VEHICLE WITH FRIEND. PT STABLE AND ALERT UPON DISCHARGE. PT PIV REMOVED FROM L HAND WITHOUT COMPLICATIONS. PT EDUCATED ABOUT DISCHARGE INSTRUCTIONS, POST-OP INSTRUCTIONS, DISCHARGE MEDICATIONS, AND FOLLOW-UP INSTRUCTIONS. PT VOICED NO CONCERNS AT THIS TIME. RASHAD OVALLES Discharge instructions and discharge home medications reviewed with Patient and a copy given. All questions have been answered and understanding verbalized.
--- NOTE | 2019-05-24 10:03 | PDOC ---
Subjective: Subjective: Seen this morning prior to discharge. Tolerating PO, denies pain, really wants to leave. Objective: Vital Signs: Vital Signs Date Time Temp Pulse Resp B/P (MAP) Pulse Ox O2 Delivery O2 Flow Rate FiO2 05/24/19 08:00 Room Air 05/24/19 07:00 97.8 54 18 112/60 (77) 98 97.8 05/23/19 10:12 8.0 PE: GEN: NAD, dressed in regular clothes, walking around room LUNGS: room air NEURO/PSYCH: A & O �3 A/P: Gallstone pancreatitis s/p cholecystectomy -- DC per primary. Due for screening colonoscopy in 2024. SAMPSON MERAZ May 24, 2019 10:03
--- NOTE | 2019-05-24 17:12 | PDOC3 ---
Discharge Summary IPC Date of Admission: May 19, 2019 Discharge Date: May 24, 2019 Admitting Diagnosis gallstone pancreatitis Final Diagnosis Problems Medical Problems: (1) Acute pancreatitis Status: Acute (2) Elevated LFTs Status: Acute CONSULTS Randy iLnk lap ricky Brief Hospital Course Ms. Lane is a 48 old who presented with: gallstone pancreatitis - per labs, improved with bowel rest, tolerated clears, given IV hydration and nutrition, surgery 05/23 lap ricky without complication and today is without pain and eating and ready for discharge cholelithiasis, likely cholecystitis - US confirmed, sono + Fitzgerald's sign dysuria - cx urine mixed sam, prophylactically on Rocephin which is stopped hypothyroidism - overtreated per lab, resumed po dose 05/22, she will skip dose every 10th day upon discharge depression - resumed sertraline which had recently been started as OP by therapist - pt declined to take mild splenomegaly 4.5 cm fibroid hx of morbid obesity Disposition home CONDITION AT DISCHARGE: Improved, Stable Diet lo fat Scheduled Levothyroxine Sodium (Levothyroxine Sodium), 1 TAB PO DAILY Scheduled PRN Oxycodone/Apap 5-325 (Percocet 5-325 Mg Tablet ), 1 TAB PO PRN Q6HRS PRN for PAIN Follow Up 1-2 weeks Rachana MCCLOUD MD May 24, 2019 17:12
--- NOTE | 2019-05-27 14:07 | PATHOLOGY ---
[facility] Accession Number: [id number] . 01 Material submitted: . gallbladder - GALLBLADDER . 01 Clinical history: . Acute pancreatitis . 02 Diagnosis: Gallbladder, laparoscopic cholecystectomy: - Cholelithiasis. - Chronic cholecystitis with increased eosinophils. (JPM:[facility] 05/27/2019) P/05/27/2019 . 02 Comment: There is no evidence of malignancy. (JPM:[facility] 05/27/2019) . 02 Electronically signed: . Lencho Hart MD, Pathologist NPI- [id number] . 01 Gross description: . Received in formalin labeled "Becca Lane, gallbladder," is an intact, turgid gallbladder measuring 8.9 x 3.1 x 3.0 cm in greatest dimensions. The serosal surface is smooth to shaggy, dusky blue-green and focally hemorrhagic in appearance, partially covered in yellow adipose tissue. Opening the specimen reveals a granular, dark green mucosa measuring 0.1 cm in thickness, with a gallbladder wall thickness of up to 0.3 cm including attached adipose tissue. No polyps or nodules are noted grossly. Calculi are present within the specimen that are multifaceted and yellow-brown in appearance, ranging from 0.2 to 1.4 cm in maximum dimension. Clinical Nursing Instructor sections of the infundibulum, body and fundus are submitted in cassette A1. ([facility]; 05/24/2019) XDC/XDC . 02 Pathologist provided ICD-10: K80.10 . 02 CPT . 807240 Specimen Comment: A courtesy copy of this report has been sent to Specimen Comment: [phone], , . Specimen Comment: Report sent to Dr.ELLISONDR MCCLOUD / DR RAMEY Performed at: 01 [facility] [address], [place], [place] [id number] MD Julián Resendiz MD Phone: [phone] Performed at: 02 [facility] [address] [place], [place] [id number] MD Lencho Hart MD Phone: [phone]
== END 2019-05-24 09:52 | disposition home or self-care (01) | DRG 417 ==
LOC: ER 14:54 → 5 SOUTH 17:25
PROVIDERS: ADMIT Family Medicine; ATTEND Family Medicine
PROC: BF101ZZ Fluoroscopy of Bile Ducts using Low Osmolar Contrast (ICD-10-PCS; 2019-05-23)
PROC: 0FT44ZZ Resection of Gallbladder, Percutaneous Endoscopic Approach (ICD-10-PCS; principal; 2019-05-23 08:30)
DX: K80.10 Calculus of gallbladder with chronic cholecystitis without obstruction (principal); K85.10 Biliary acute pancreatitis without necrosis or infection; E03.9 Hypothyroidism, unspecified; F32.9 Major depressive disorder, single episode, unspecified; F41.9 Anxiety disorder, unspecified; E66.01 Morbid (severe) obesity due to excess calories; R16.1 Splenomegaly, not elsewhere classified; D25.9 Leiomyoma of uterus, unspecified; D69.6 Thrombocytopenia, unspecified; R30.0 Dysuria; K59.00 Constipation, unspecified; R94.5 Abnormal results of liver function studies; F17.210 Nicotine dependence, cigarettes, uncomplicated; Z68.31 Body mass index [BMI] 31.0-31.9, adult; Z82.49 Family history of ischemic heart disease and other diseases of the circulatory system; Z80.8 Family history of malignant neoplasm of other organs or systems
CPT/HCPCS: 36415; 71046; 74177; 74300; 76705; 80053; 80307; 81001; 81025; 83690; 83735; 84443; 84484; 85025; 86705; 86709; 86803; 87086; 87340; 88304; 93005; 96361; 96374; 96375; A7015; G0480; J0330; J0696; J0780; J1100; J2001; J2405; J2704; J2710; J3010; J3490; J7030; J7120; Q9967; 99285-25; G0378

== ENCOUNTER 2021-09-19 14:45 | Emergency (ER) | payer SELFPAY ==
[~2021-09-19] VITALS: Ht 165.1 cm; Wt 136.0 kg
[~2021-09-19 14:45] MED LIST: LEVO175T5 PO; OXYC1TAB15 PO
[2021-09-19] MEDS ORDERED: ONDANSETRON PF 4 MG/2 ML VIAL. IVP ONE (16:45)
[2021-09-19] MEDS ORDERED: IV NORMAL SALINE 1000ML BAG 1,000 ML IV ONE (16:45)
[2021-09-19] MEDS ORDERED: MORPHINE SULFATE 4 MG/ML INJ. IVP ONE (16:45)
[2021-09-19 16:52] LABS: BILIRUBIN,URINE NEGATIVE (NEG); CLARITY,URINE CLEAR; COLOR,URINE YELLOW; NITRITE,URINE NEGATIVE (NEG); PH,URINE 7.5 (<5.0-8.0); PROTEIN,URINE NEGATIVE (NEG-TRACE); UROBILINOGEN,URINE 0.2 mg/dL (0.2 mg/dL)
[2021-09-19 17:00] LABS: BACTERIA,URINE 0 /HPF (0-FEW); RBC,URINE 0 /HPF (0-2); WBC,URINE 0 /HPF (0-4)
[2021-09-19 17:19] LABS: BASO % 0 % (0-3); EOS % 0 % (0-3); HEMATOCRIT 34.9 % (36.0-47.0); LYMPH # 1.5 x10^3/uL (1.0-4.8); LYMPH % 33 % (24-48); MEAN CORPUSCULAR HEMOGLOBIN 21 pg (25-35); MEAN CORPUSCULAR HGB CONC 32 g/dL (31-37); MEAN CORPUSCULAR VOLUME 65 fL (79-100); MONO # 0.4 x10^3/uL (0.0-1.1); MONO % 8 % (0-9); NEUT # 2.7 x10^3/uL (1.8-7.7); NEUT % 58 % (31-73); PLATELET COUNT 176 x10^3/uL (140-400); RED BLOOD COUNT 5.33 x10^6/uL (3.50-5.40); WHITE BLOOD COUNT 4.7 x10^3/uL (4.0-11.0)
[2021-09-19 17:30] LABS: CALCIUM 8.2 mg/dL (8.5-10.1); CREATININE 0.7 mg/dL (0.6-1.0); GFR 88.6; POTASSIUM 4.1 mmol/L (3.5-5.1)
[2021-09-19] MEDS ORDERED: CONTRAST GIVEN. MC PRN (17:30)
[2021-09-19] MEDS ORDERED: IOHEXOL 300 MG/ML 100ML VIAL. IV ONE (17:30)
[2021-09-19 17:36] LABS: ALBUMIN 3.6 g/dL (3.4-5.0); ALBUMIN/GLOBULIN RATIO 1.1 (1.0-1.7); TOTAL BILIRUBIN 0.4 mg/dL (0.2-1.0); TOTAL PROTEIN 6.9 g/dL (6.4-8.2)
--- NOTE | 2021-09-19 17:44 | PHYS DOC ---
Past Medical History Past Medical History: Other Additional Past Medical Histor: PERNICIOUS ANEMIA, CELIAC Past Surgical History: Other Additional Past Surgical Histo: "THYROID ABLATION" Smoking Status: Former Smoker Alcohol Use: None Drug Use: None General Adult EDM: Chief Complaint: FLANK PAIN HPI: HPI: Patient is a 51 year old female presenting to the ED today complaining of 5 out of 10 right flank pain, right low back pain, pain radiating to the right lower quadrant, symptoms have been going on for 1 week. Patient reports nausea, no vomiting, no diarrhea. Denies anything specifically relieving her pain but states laying back exacerbates the pain. Last bowel movement was yesterday and she stated it was normal. Review of Systems: Review of Systems: Constitutional: Denies fever or chills. [] Eyes: Denies change in visual acuity. [] HENT: Denies nasal congestion or sore throat. [] Respiratory: Denies cough or shortness of breath. [] Cardiovascular: Denies chest pain or edema. [] GI: Reports right lower quadrant pain with nausea, denies vomiting, bloody stools or diarrhea. [] : Denies dysuria. [] Musculoskeletal: Reports right mid back pain and right low back pain Integument: Denies rash. [] Neurologic: Denies headache, focal weakness or sensory changes. [] Psychiatric: Denies depression or anxiety. [] Heart Score: C/O Chest Pain: N/A Risk Factors: Risk Factors: DM, Current or recent (<one month) smoker, HTN, HLP, family history of CAD, obesity. Risk Scores: Score 0 - 3: 2.5% MACE over next 6 weeks - Discharge Home Score 4 - 6: 20.3% MACE over next 6 weeks - Admit for Clinical Observation Score 7 - 10: 72.7% MACE over next 6 weeks - Early Invasive Strategies Current Medications: Current Medications Medications (Trade) Dose Ordered Sig/Bill Start Time Stop Time Status Last Admin Dose Admin Info (CONTRAST GIVEN -- Rx MONITORING) 1 each PRN DAILY PRN 09/19/21 17:30 09/21/21 17:29 Iohexol (Omnipaque 300 Mg/ml) 75 ml 1X ONCE 09/19/21 17:30 09/19/21 17:31 DC Morphine Sulfate (Morphine Sulfate) 4 mg 1X ONCE 09/19/21 16:45 09/19/21 16:46 DC 09/19/21 17:26 4 MG Ondansetron HCl (Zofran) 4 mg 1X ONCE 09/19/21 16:45 09/19/21 16:46 DC 09/19/21 17:27 4 MG Sodium Chloride 1,000 ml @ 1,000 mls/hr 1X ONCE 09/19/21 16:45 09/19/21 17:44 09/19/21 17:26 1,000 MLS/HR Allergies: Allergies: Allergies Coded Allergies Type Severity Reaction Last Updated Verified No Known Drug Allergies 05/19/19 No Physical Exam: PE: Constitutional: Well developed, well nourished, no acute distress, non-toxic appearance. [] HENT: Normocephalic, atraumatic, bilateral external ears normal, oropharynx moist, no oral exudates, nose normal. [] Eyes: PERRLA, EOMI, conjunctiva normal, no discharge. [] Neck: Normal range of motion, no tenderness, supple, no stridor. [] Cardiovascular:Heart rate regular rhythm, no murmur [] Lungs & Thorax: Bilateral breath sounds clear to auscultation [] Abdomen: Obese abdomen. Bowel sounds normal, soft, no tenderness, no masses, no pulsatile masses. [] Skin: Warm, dry, no erythema, no rash. [] Back: No tenderness, no CVA tenderness. [] Extremities: No tenderness, no cyanosis, no clubbing, ROM intact, no edema. [] Neurologic: Alert and oriented X 3, normal motor function, normal sensory function, no focal deficits noted. [] Psychologic: Affect normal, judgement normal, mood normal. [] Current Patient Data: Labs: Laboratory Tests Test 09/19/21 16:40 09/19/21 17:11 Urine Collection Type Unknown Urine Color Yellow Urine Clarity Clear Urine pH 7.5 (<5.0-8.0) Urine Specific [place] 1.015 (1.000-1.030) Urine Protein Negative mg/dL (NEG-TRACE) Urine Glucose (UA) Negative mg/dL (NEG) Urine Ketones (Stick) Negative mg/dL (NEG) Urine Blood Negative (NEG) Urine Nitrite Negative (NEG) Urine Bilirubin Negative (NEG) Urine Urobilinogen Dipstick 0.2 mg/dL (0.2 mg/dL) Urine Leukocyte Esterase Negative (NEG) Urine RBC 0 /HPF (0-2) Urine WBC 0 /HPF (0-4) Urine Squamous Epithelial Cells Few /LPF Urine Bacteria 0 /HPF (0-FEW) White Blood Count 4.7 x10^3/uL (4.0-11.0) Red Blood Count 5.33 x10^6/uL (3.50-5.40) Hemoglobin 11.0 g/dL (12.0-15.5) L Hematocrit 34.9 % (36.0-47.0) L Mean Corpuscular Volume 65 fL (79-100) L Mean Corpuscular Hemoglobin 21 pg (25-35) L Mean Corpuscular Hemoglobin Concent 32 g/dL (31-37) Red Cell Distribution Width 20.0 % (11.5-14.5) H Platelet Count 176 x10^3/uL (140-400) Neutrophils (%) (Auto) 58 % (31-73) Lymphocytes (%) (Auto) 33 % (24-48) Monocytes (%) (Auto) 8 % (0-9) Eosinophils (%) (Auto) 0 % (0-3) Basophils (%) (Auto) 0 % (0-3) Neutrophils # (Auto) 2.7 x10^3/uL (1.8-7.7) Lymphocytes # (Auto) 1.5 x10^3/uL (1.0-4.8) Monocytes # (Auto) 0.4 x10^3/uL (0.0-1.1) Eosinophils # (Auto) 0.0 x10^3/uL (0.0-0.7) Basophils # (Auto) 0.0 x10^3/uL (0.0-0.2) Platelet Estimate Pending Sodium Level 143 mmol/L (136-145) Potassium Level 4.1 mmol/L (3.5-5.1) Chloride Level 107 mmol/L (98-107) Carbon Dioxide Level 26 mmol/L (21-32) Anion Gap 10 (6-14) Blood Urea Nitrogen 15 mg/dL (7-20) Creatinine 0.7 mg/dL (0.6-1.0) Estimated GFR (Cockcroft-Gault) 88.6 BUN/Creatinine Ratio 21 (6-20) H Glucose Level 90 mg/dL (70-99) Calcium Level 8.2 mg/dL (8.5-10.1) L Total Bilirubin 0.4 mg/dL (0.2-1.0) Aspartate Amino Transferase (AST) 23 U/L (15-37) Alanine Aminotransferase (ALT) 34 U/L (14-59) Alkaline Phosphatase 78 U/L (46-116) Total Protein 6.9 g/dL (6.4-8.2) Albumin 3.6 g/dL (3.4-5.0) Albumin/Globulin Ratio 1.1 (1.0-1.7) Lipase 80 U/L (73-393) Ethyl Alcohol Level < 10 mg/dL (0-10) Laboratory Tests 09/19/21 17:11 Laboratory Tests 09/19/21 17:11 Vital Signs: Vital Signs Date Time Temp Pulse Resp B/P (MAP) Pulse Ox O2 Delivery O2 Flow Rate FiO2 09/19/21 16:30 97.8 51 16 169/84 (112) 99 Room Air 97.8 EKG: EKG: [] Radiology/Procedures: Radiology/Procedures: []PROCEDURE: CT ABD PELV W/ IV CONTRST ONLY Examination: CT of the abdomen pelvis with IV contrast HISTORY: History of right flank pain, right lower quadrant abdominal pain COMPARISON: 05/19/2019 TECHNIQUE: Axial CT images of the abdomen pelvis were performed with IV contrast. Coronal and sagittal reformats are performed. Exposure: One or more of the following individualized dose reduction techniques were utilized for this examination: 1. Automated exposure control 2. Adjustment of the mA and/or kV according to patient size 3. Use of iterative reconstruction technique FINDINGS: The bibasilar lungs are clear. No evidence of free air identified in the abdomen. The liver, adrenals grossly appears unremarkable. Cholecystectomy changes. Few calcified granulomas identified in the spleen. The stomach is mi ldly distended with visualized pancreas grossly appears unremarkable. Distended small bowel loops identified in the left lower quadrant and left mid abdomen in the distal small bowel loops. . Feces and gas noted in the colon. Urinary bladder is mildly distended. There is a 4.8 x 3.8 cm hypodensity abutting the right portion of the uterus probably a fibroid The bilateral kidneys enhance symmetrically. Mild degenerative changes thoracal lumbar spine. IMPRESSION: 1. Distended small bowel loops identified in the left lower quadrant and left mid abdomen in the distal small bowel loops likely small bowel obstruction or ileus. 2. 4.8 cm hypodensity identified abutting the right portion of the uterus probably a fibroid. Electronically signed by: Milton Valverde MD (09/19/2021 6:31 PM) [id number] DICTATED and SIGNED BY: MILTON VALVERDE MD DATE: 09/19/21 [id number] 0 Course & Med Decision Making: Course & Med Decision Making Pertinent Labs and Imaging studies reviewed. (See chart for details) This is a 51-year-old female patient presented to the ED today with right flank pain, right low back pain, pain radiating to the right lower quadrant, symptoms began a week ago. Also complaining of nausea. CBC with a normal WBC, CMP with no acute findings, UA negative for infection. CT of the abdomen and pelvis noted for constipation with possible ileitis or small bowel obstruction. Also noted for fibroid. Patient desires to go home. She has no vomiting. I spoke to Dr. Rios. He states if patient is comfortable with going home she can be discharged otherwise she can be admitted. Patient continues to state she prefers to go home, she is asking if she can eat food specifically some meat right now. Recommended she goes on a clear liquid diet. Recommended OTC constipation medicines. Provided Dr. Bailon's contact number for follow-up in the course 1-2 days and PCP in the course of this week. Also recommended [facility] for the fibroid Dragon Disclaimer: Fermin Disclaimer: This electronic medical record was generated, in whole or in part, using a voice recognition dictation system. Departure Departure Impression: Primary Impression: Constipation Qualified Codes: K59.00 - Constipation, unspecified Additional Impressions: Dynamic ileus SBO (small bowel obstruction) Fibroid, uterine Qualified Codes: D25.9 - Leiomyoma of uterus, unspecified Disposition: 01 HOME / SELF CARE / HOMELESS Condition: STABLE Referrals: Rachana MCCLOUD MD (PCP) follow up in the course of this week NEELA BAILON MD follow up in the course of this week Patient Instructions: Constipation, Adult, Small Bowel Obstruction, [id number] Additional Instructions: You were evaluated in the emergency room. You were noted to be constipated and possibly have an ileus or small bowel obstruction. We encourage you to go on a clear liquid diet for 1-2 days, take cxco-ohy-arezopu constipation medicines including MiraLAX to help you have a bowel movement. Perform a suppository tonight. You also have a fibroid in the right side of the uterus. This is a nonemergent situation and can be followed up with an [facility] or primary care doctor in 1 to 2 weeks. Follow-up with the provided general surgeon in the course of this week. Come back to the ED at any point symptoms worsen Scripts Docusate Sodium (DOCUSATE SODIUM) 100 Mg Capsule 1 CAP PO BID for constipation for 15 Days, #30 CAP 0 Refills Prov: JACKSON COLLAZO APRN 09/19/21 Ondansetron (ONDANSETRON ODT) 4 Mg Tab.rapdis 1 TAB PO PRN Q6-8HRS, #16 TAB Prov: JACKSON COLLAZO APRN 09/19/21 JACKSON COLLAZO APRN Sep 19, 2021 17:44
--- NOTE | 2021-09-19 18:33 | RAD ---
Examination: CT of the abdomen pelvis with IV contrast HISTORY: History of right flank pain, right lower quadrant abdominal pain COMPARISON: 05/19/2019 TECHNIQUE: Axial CT images of the abdomen pelvis were performed with IV contrast. Coronal and sagitta l reformats are performed. Exposure: One or more of the following individualized dose reduction techniques were utilized for thi s examination: 1. Automated exposure control 2. Adjustment of the mA and/or kV according to patient size 3. Use of iterative reconstruction technique FINDINGS: The bibasilar lungs are clear. No evidence of free air identified in the abdomen. The liver, adrenals grossly appears unremarkable. Cholecystectomy changes. Few calcified granulomas identified in the sp janessa. The stomach is mildly distended with visualized pancreas grossly appears unremarkable. Distende d small bowel loops identified in the left lower quadrant and left mid abdomen in the distal small madhu wel loops. . Feces and gas noted in the colon. Urinary bladder is mildly distended. There is a 4.8 x 3.8 cm hypodensity abutting the right portion of the uterus probably a fibroid The bilateral kidneys enhance symmetrically. Mild degenerative changes thoracal lumbar spine. IMPRESSION: 1. Distended small bowel loops identified in the left lower quadrant and left mid abdomen in the dis vandana small bowel loops likely small bowel obstruction or ileus. 2. 4.8 cm hypodensity identified abutting the right portion of the uterus probably a fibroid. Electronically signed by: Milton Valverde MD (09/19/2021 6:31 PM) [id number]
[2021-09-19 18:55] VITALS: BP 176/97
[2021-09-19 19:11] LABS: BARBITURATES NEG (NEG); BENZODIAZEPINES NEG (NEG); CANNABINOIDS NEG (NEG); COCAINE NEG (NEG); METHADONE NEG (NEG); OPIATES NEG (NEG); PHENCYCLIDINE NEG (NEG)
[2021-09-19 19:12] LABS: AMPHETAMINE/METHAMPHETAMINE NEG (NEG)
[2021-09-19] MEDS ORDERED: BISACODYL 5 MG TABLET.DR. PO STA (19:23)
[2021-09-19] MEDS ORDERED: MAGNESIUM CITRATE 296 ML SOLUTION. PO ONE (19:30)
[2021-09-19] MEDS ORDERED: DOCU100C28 PO (19:51)
[2021-09-19] MEDS ORDERED: ONDA4TAB12 PO (19:51)
[2021-09-19 21:01] LABS: PLT ESTIMATE ADEQUATE (ADEQUATE)
[2021-09-19 21:02] LABS: ANISOCYTOSIS SLIGHT; HYPOCHROMIA MARKED; MICROCYTOSIS MARKED
== END 2021-09-19 20:11 | disposition home or self-care (01) ==
LOC: ER 14:45
DX: D25.9 Leiomyoma of uterus, unspecified (principal); K59.00 Constipation, unspecified; K56.609 Unspecified intestinal obstruction, unspecified as to partial versus complete obstruction; K56.7 Ileus, unspecified; Z87.891 Personal history of nicotine dependence
CPT/HCPCS: 36415; 74177; 80053; 80307; 81001; 83690; 85025; 96361; 96374; 96375; 99285; G0480; J2270; J2405; J7030; Q9967